=== PATIENT | female | born 1955 | race Caucasian/White ===

== ENCOUNTER 2017-12-01 11:42 | Inpatient (IN) | payer OTHER ==
[~2017-12-01] VITALS: Ht 162.6 cm; Wt 174.6 kg
[2017-12-01 11:42] VITALS: BP 147/54
[2017-12-01 12:46] LABS: BASO % 0.3 % (0.0-1.0); HEMATOCRIT 35.4 % (37.0-47.0); HEMOGLOBIN 11.4 g/dl (12.0-16.0); LYMPH # 0.8 10*3/uL (1.3-4.4); LYMPH % 5.1 % (27.0-41.0); MEAN CELL VOLUME 78.7 fl (81.0-99.0); MEAN CORPUSCULAR HGB 25.3 pg (27.0-31.0); MEAN CORPUSCULAR HGB CONC 32.2 g/dl (33.0-37.0); MEAN PLATELET VOLUME 11.5 fl (9.6-12.3); MONO # 1.2 10*3/uL (0.1-1.0); MONO % 7.8 % (3.0-9.0); NEUT # 12.9 10*3/uL (2.3-7.9); NEUT % 84.8 % (47.0-73.0); PLATELET COUNT AUTOMATED 267 10*3/uL (130-400); RED CELL DISTRI WIDTH 16.8 % (0-14.5); WHITE BLOOD COUNT 15.2 10*3/uL (4.8-10.8)
[2017-12-01 13:03] LABS: ALBUMIN 1.9 gm/dl (3.1-4.5); CREATININE 1.96 mg/dL (0.55-1.02); POTASSIUM 3.2 mmol/L (3.5-5.1); TOTAL PROTEIN 7.6 gm/dL (6.4-8.2); TROPONIN I 0.035 ng/ml (<0.045)
[2017-12-01 14:00] VITALS: BP 136/57
[2017-12-01 14:30] VITALS: BP 120/63
[2017-12-01] MEDS ORDERED: HUMULIN R500 UNIT/1 SQ (15:38)
[2017-12-01] MEDS ORDERED: VICTOZA 3-PAK6 MG/ML SC (15:39)
[2017-12-01] MEDS ORDERED: TOPROL XL25 MG PO (15:41)
[2017-12-01 16:00] VITALS: BP 135/76
[2017-12-01] MEDS ORDERED: NORVASC5 MG PO (16:00)
[2017-12-01] MEDS ORDERED: HYDROCHLOROTHIA25 M1 PO (16:00)
[2017-12-01] MEDS ORDERED: MEGESTROL ACETA40 MG PO (16:00)
[2017-12-01] MEDS ORDERED: Rocaltrol0.25 MCG PO (16:01)
[2017-12-01] MEDS ORDERED: VESICARE10 MG PO (16:01)
[2017-12-01 17:54] LABS: ACT PARTIAL THROMBO TIME 25.5 SECONDS (20.8-31.5); INTERNATIONAL NORM RATIO 1.2 (2.0-3.5)
[2017-12-01 20:00] VITALS: BP 120/50
[2017-12-02] VITALS: BP 150/51
== END 2017-12-02 00:15 | disposition short-term general hospital (02) | DRG 871 ==
LOC: ED 11:42 → EDHOLD 14:33 → 5E 14:39
PROVIDERS: Family Medicine; Student in an Organized Health Care Education/Training Program
DX: A41.9 Sepsis, unspecified organism (principal); N17.0 Acute kidney failure with tubular necrosis; E43 Unspecified severe protein-calorie malnutrition; E87.2 Acidosis; L89.150 Pressure ulcer of sacral region, unstageable; L89.893 Pressure ulcer of other site, stage 3; E87.1 Hypo-osmolality and hyponatremia; F33.9 Major depressive disorder, recurrent, unspecified; Z68.44 Body mass index [BMI] 60.0-69.9, adult; R07.9 Chest pain, unspecified; E87.6 Hypokalemia; D50.9 Iron deficiency anemia, unspecified; E66.01 Morbid (severe) obesity due to excess calories; E11.65 Type 2 diabetes mellitus with hyperglycemia; I10 Essential (primary) hypertension; Z79.4 Long term (current) use of insulin; Z88.1 Allergy status to other antibiotic agents; Z90.49 Acquired absence of other specified parts of digestive tract; Z82.49 Family history of ischemic heart disease and other diseases of the circulatory system; Z80.6 Family history of leukemia; Z79.899 Other long term (current) drug therapy

== ENCOUNTER 2018-07-28 16:34 | Inpatient (IN) | payer MEDICAID ==
--- NOTE | 2018-07-27 19:40 | NUR ---
Time: 1938 A 63 year old FEMALE admitted to 4E under services of BEATRIS HARDING DO. Pt. arrived via stretcher from ER. Chief complaint: WEAKNESS. SITA CROFT
[~2018-07-28] VITALS: Ht 162.6 cm; Wt 145.9 kg
--- NOTE | ~2018-07-28 | CON ---
[place], [place] REPORT OF CONSULTATION NAME: GERMAN MAKI UNIT #: [id number] ROOM: 403 DOCTOR: BRANDIE CABALLERO MD BIRTHDATE: [birth year] DOS: 07/30/2018 REASON FOR CONSULTATION: UTI/osteomyelitis of spine. CHIEF COMPLAINT: Leakage from urinary catheter. HISTORY OF PRESENT ILLNESS: This is a 63-year-old female who is known to me from her last admission at [facility] when she was seen in 11/2017. She had a CSF leakage from her coccygeal area along with erosion of her coccygeal area concerning for osteomyelitis. At that time, she also had clostridium ramosum bloodstream infection, which was positive in 2/4 bottles anaerobic cultures, and after being at [facility] and consultation with Neurosurgery, it was recommended by Neurosurgery to transfer her to [facility] where her CSF leak can be corrected. However, after the transfer to [facility], it was deemed that because of her comorbidities and morbid obesity, she is not a candidate for any corrective surgery of the spine, and she was treated empirically with IV antibiotics for 6 weeks and then she followed up with me in the clinic. At that time, she was off antibiotics and was supposed to follow up regularly with ESR, CRP, but she did not, and she kept on requesting to be sent back home. She was at [facility] for a long time, but she was not happy with the care, and signed herself AMA and has been at home for the last few days where her urinary catheter was leaking, and she denied having abdominal pain. No fever or chills. On presentation to the hospital, her vitals are stable. Her labs do not reveal any leukocytosis. Her urine shows 16-20 wbc's. Urine culture is growing Citrobacter as well as E. faecalis. Urinary catheter has been removed. There was a lower extremity ultrasound done because of her weakness, which was showing a possible DVT of the posterior tibial vein, which was a suboptimal imaging, and a lumbar spine CT that was done yesterday 07/29/2018 with contrast shows chronic coccyx osteomyelitis and mild L3-L4 and moderate L4-L5 spinal stenosis, severe L5-S1 degenerative disk disease. The patient has been started on vancomycin and Zosyn. ID has been consulted for further management. PAST MEDICAL HISTORY: Significant for spinal stenosis, osteomyelitis as mentioned above. Hypertension, morbid obesity, type 2 diabetes, history of uterine cancer that has been resolved. PAST SURGICAL HISTORY: Cholecystectomy, skin graft, and tonsillectomy. SOCIAL HISTORY: Nonalcoholic, nonsmoker, no illicit drug use. FAMILY HISTORY: Noncontributory at this time. ALLERGIES: TO LEVOFLOXACIN, NOT MENTIONED WHAT IT IS. HOME MEDICATIONS: Reviewed. REVIEW OF SYSTEMS: A 12-point review of systems has been done. Pertinent negatives and positives included in HPI. Rest are noncontributory. [place], [place] REPORT OF CONSULTATION NAME: GERMAN MAKI UNIT #: [id number] ROOM: 403 [facility] BIR[facility] [birth year] PHYSICAL EXAMINATION: VITAL SIGNS: Noted stable, mentioned in HPI. GENERAL: The patient is alert, oriented x 3, not in acute distress. HEENT: Atraumatic, normocephalic. PERRLA. EOMI. RESPIRATORY: Air entry bilaterally equal. No wheeze or crackles. CARDIOVASCULAR: S1, S2 normal. No murmur, rubs or gallops. ABDOMEN: Soft, morbidly obese pannus, nontender. EXTREMITIES: Bilateral lower extremity chronic swelling and chronic skin changes from her diabetes. SPINE: Lower lumbar coccygeal area has spinal tenderness, no redness or leakage found at this time and the defect has closed from what has seen in 11/2017. LABORATORY DATA AND IMAGING: Reviewed, mentioned in HPI. ASSESSMENT AND PLAN: 1. Urinary tract infection/suspected neurogenic bladder/chronic indwelling Connors catheter, which has been removed. 2. Chronic osteomyelitis of lumbar spine treated recently; currently the CSF leakage defect has been closed. PLAN: At this time, from her prior presentation she has shown remarkable improvement in her CSF defect as well as spinal defect over the coccygeal area, and she has been treated appropriately with 6 weeks of antibiotics in the past, I would treat her UTI at this time with 7 days of amoxicillin 500 mg t.i.d. plus Bactrim 1 tablet double strength twice a day for 7 days. Monitor CBC, BMP while on antibiotics. At this time, I would just check her ESR, CRP, and monitor it every month as a follow up. I have seen her at my [place] clinic and would just request her to keep on following. Would do a bladder scan to make sure she is not retaining any more urine. She has fecal incontinence, it would be okay to check C. diff for now. If it is negative, then monitor her closely and would refer her outpatient for neurosurgical evaluation. Overall stable from ID standpoint. Thank you for your consult. Please call for any questions. Brandie Caballero MD CM:CONSTR:REPORT OF CONSULTATION 1716 09/01/18 1641 interface
--- NOTE | ~2018-07-28 | EKG ---
[place], [place] ELECTROCARDIOGRAM REPORT NAME: GERMAN MAKI UNIT #: [id number] ROOM: 403 DOCTOR: MARCIAL DRAFT REPORT BIRTHDATE: [birth year] [facility] Test Date: 2018-07-28 Test Time: 18:21:17 Pat Name: GERMAN MAKI Department: Room: 403 Gender: F Curtain Cleaner: Ilda Antony : 1955 Requested By: FRENCH FAJARDO PA-C Order Number: [id number] Reading MD: Sai Parham MD Measurements Intervals Valentine Rate: 55 P: 4 VT: 170 QRS: -50 QRSD: 139 T: 45 QT: 506 QTc: 484 Interpretive Statements Sinus rhythm Left bundle branch block Baseline wander in lead(s) V6 Electronically Signed On 07-29-2018 18:18:31 PST by Sai Parham MD CM:EKGRPT:ELECTROCARDIOGRAM REPORT 20 1818 FRENCH FAJARDO PA-C EPIPHANY DRAFT REPORT FRENCH FAJARDO PA-C
[2018-07-28 16:34] VITALS: BP 144/57
[~2018-07-28 16:34] MED LIST: HUMULIN R500 UNIT/1 SQ; HYDROCHLOROTHIA25 M1 PO; MEGESTROL ACETA40 MG PO; NORVASC10 MG PO; Rocaltrol0.25 MCG PO; TOPROL XL25 MG PO; VESICARE10 MG PO; VICTOZA 3-PAK6 MG/ML SC
[2018-07-28 17:30] LABS: BASO # 0.1 10*3/uL (0.0-0.1); BASO % 0.6 % (0.0-1.0); EOS # 0.2 10*3/uL (0.0-0.4); EOS % 1.9 % (1.0-4.0); HEMATOCRIT 40.4 % (37.0-47.0); HEMOGLOBIN 12.5 g/dl (12.0-16.0); LYMPH # 1.4 10*3/uL (1.3-4.4); LYMPH % 16.9 % (27.0-41.0); MEAN CELL VOLUME 83.1 fl (81.0-99.0); MEAN CORPUSCULAR HGB 25.7 pg (27.0-31.0); MEAN CORPUSCULAR HGB CONC 30.9 g/dl (33.0-37.0); MEAN PLATELET VOLUME 10.2 fl (9.6-12.3); MONO # 0.5 10*3/uL (0.1-1.0); MONO % 6.2 % (3.0-9.0); NEUT # 6.3 10*3/uL (2.3-7.9); NEUT % 73.9 % (47.0-73.0); PLATELET COUNT AUTOMATED 313 10*3/uL (130-400); RED BLOOD COUNT 4.86 10*6/uL (4.10-5.10); RED CELL DISTRI WIDTH 17.2 % (0-14.5); WHITE BLOOD COUNT 8.5 10*3/uL (4.8-10.8)
[2018-07-28 17:44] LABS: ACT PARTIAL THROMBO TIME 25.5 SECONDS (20.8-31.5)
[2018-07-28 18:00] LABS: BILIRUBIN NEGATIVE (NEGATIVE); BLOOD 1+ (NEGATIVE); CLARITY CLOUDY (CLEAR); COLOR YELLOW (YELLOW); GLUCOSE NEGATIVE (NEGATIVE); KETONE TRACE (NEGATIVE); LEUKO ESTERASE 3+ (NEGATIVE); NITRITE POSITIVE (NEGATIVE); PH 7.5 (5.0-9.0); SPECIFIC GRAVITY 1.015 (1.005-1.030); UROBILINOGEN 0.2 E.U./dl (0.2-1.0)
[2018-07-28 18:02] LABS: ALBUMIN 2.5 gm/dl (3.1-4.5); ALKALINE PHOSPHATASE 113 U/L (45-117); BUN 10 mg/dl (7-24); CHLORIDE 101 mmol/L (98-107); CREATININE 1.01 mg/dL (0.55-1.02); LIPASE 38 U/L (73-393); POTASSIUM 3.9 mmol/L (3.5-5.1); SGOT/AST 19 IU/L (3-35); SGPT/ALT 17 U/L (12-78); SODIUM 135 mmol/L (136-145); TOTAL PROTEIN 9.1 gm/dL (6.4-8.2)
[2018-07-28 18:08] LABS: TROPONIN I < 0.015 ng/ml (<0.045)
[2018-07-28 18:08] LABS: BACTERIA 3+; WBC 16-20 wbc/hpf (0-5)
[2018-07-28 19:26] VITALS: BP 152/78
[2018-07-28 19:40] VITALS: BP 152/48
--- NOTE | 2018-07-28 19:58 | NUR ---
DR. ROBB IN TO SEE PATIENT.
--- NOTE | 2018-07-28 20:26 | NUR ---
CALLED [facility] IN [place] TO VERIFY HOME MEDICATIONS. [facility] PATIENT HAS NOT FILLED ANY SCRIPTS SINCE 2017 DUE TO BEING IN THE CUSTODIAL. [facility] HE WILL FAX MEDICATION LIST FROM JANUARY 2018-PRESENT.
--- NOTE | 2018-07-28 20:31 | NUR ---
SPOKE TO HOISTMAN AT [facility]. STATES THIS PATIENT WAS A PATIENT THERE, BUT SHE LEFT AMA. STATES SHE HAS NO ACCESS TO PAST RECORDS AND THAT THESE CAN ONLY BE OBTAINED FROM THE OFFICE. OFFICE HOURS 9AM-5PM M-F. PHONE NUMBER [phone]. UNABLE TO VERIFY HOME MEDICATIONS FOR THIS REASON.
[2018-07-29] VITALS: BP 136/78
--- NOTE | 2018-07-29 02:18 | NUR ---
MULTIPLE ATTEMPTS WERE MADE TO PLACE RIVAS CATHETER BY MULTIPLE RNs PER 'S VERBAL ORDER. UNABLE TO DUE SO. PATIENT HAS HX OF UTERINE CANCER W/ RADIATION THERAPY. UNABLE TO VISUALIZE URETHRAL OPENING BECAUSE OF THIS.
[2018-07-29 06:56] LABS: BASO # 0.1 10*3/uL (0.0-0.1); BASO % 0.7 % (0.0-1.0); EOS # 0.2 10*3/uL (0.0-0.4); EOS % 2.6 % (1.0-4.0); HEMOGLOBIN 11.6 g/dl (12.0-16.0); LYMPH # 1.2 10*3/uL (1.3-4.4); MEAN CELL VOLUME 84.1 fl (81.0-99.0); MEAN CORPUSCULAR HGB CONC 29.7 g/dl (33.0-37.0); MEAN PLATELET VOLUME 10.3 fl (9.6-12.3); MONO # 0.7 10*3/uL (0.1-1.0); MONO % 8.4 % (3.0-9.0); NEUT # 6.6 10*3/uL (2.3-7.9); NEUT % 74.7 % (47.0-73.0); PLATELET COUNT AUTOMATED 284 10*3/uL (130-400); RED BLOOD COUNT 4.64 10*6/uL (4.10-5.10); RED CELL DISTRI WIDTH 17.2 % (0-14.5); WHITE BLOOD COUNT 8.9 10*3/uL (4.8-10.8)
[2018-07-29 07:22] LABS: ALBUMIN 2.4 gm/dl (3.1-4.5); CHLORIDE 104 mmol/L (98-107); POTASSIUM 3.8 mmol/L (3.5-5.1); SGOT/AST 15 IU/L (3-35); SGPT/ALT 15 U/L (12-78); SODIUM 137 mmol/L (136-145)
[2018-07-29 07:34] LABS: ALKALINE PHOSPHATASE 104 U/L (45-117); BUN 12 mg/dl (7-24); TOTAL PROTEIN 8.3 gm/dL (6.4-8.2)
--- NOTE | 2018-07-29 07:40 | NUR ---
PT RESTING IN BED. HELPED POSITION SELF IN BED. RESP-EASY AND REGULAR. IVF INFUSING WITH NO PROBLEM. NO C/O AT THIS TIME. CALL LIGHT IN REACH. SEE SHIFT ASSESSMENT.
[2018-07-29 08:00] VITALS: BP 122/54
--- NOTE | 2018-07-29 08:54 | NUR ---
FRENCH AWARE OF WOUND CARE CONSULT.
--- NOTE | 2018-07-29 09:00 | NUR ---
Customer Sales Representative in to talk to patient. Patient states lives at home with . There are no steps in the home. Physician: dev desir [facility]acy[facility] Home health services: none Patient's level of ADLs: MAX ASSIST Patient has working utilities: all working DME: walker Follow-up physician's appointment after d/c: will be made by hospitalist nurse director upon discharge Does patient want to access PORTAL?: no Discharge plan discussed with patient, patient lives at home with , patient states she was just discharged from a nursing facility in [place], where she had been since November of last year. patient states she was discharged last to home, no home services were set up. patient's also present. discussed with them a discharge plan and patient felt she needed to return to a short term nursing home was inagreement with this. patient stated she would like to go to a facility either in [place] or [place]. associate media planner will send referrals to facilities in these areas, case management will follow. SAMY JOSÉ
--- NOTE | 2018-07-29 09:10 | NUR ---
Occupational Therapy evaluation completed on 4 with full eval completed. Precautions include fall risk, obesity,collazo removal and unable to be re-inserted, IV UE,impaired mobility. Patient is moderate complexity level 47207 via chart review testing and evaluation. Recommend OT per POC and SNF to enable safe return home with . Thank you for this referral Bonita Lee OTR/L
--- NOTE | 2018-07-29 09:12 | NUR ---
PHYSICAL THERAPY PAtient evaluated on 4, full evaluation to follow. Continue with PT as per plan of care with fall, morbidly obese and mod (A) precautions. Will require return to SNF. Patient is moderate complexity via chart review, tests and evaluation: [id number]. Thank you for this referral. Chela Jang,PT
--- NOTE | 2018-07-29 09:30 | NUR ---
SPOKE WITH [facility] THEY WILL FAX MEDICATION LIST.
--- NOTE | 2018-07-29 10:30 | NUR ---
SPOKE WITH NEFTALI AT [facility] SHE WILL FAX SHE GOT BUSY
--- NOTE | 2018-07-29 10:34 | NUR ---
Spoke with Patient and at Bedside. Pt. would like facility closer to where they live for SNF placement. Will follow.
[2018-07-29] MEDS ORDERED: COLACE100 MG PO (10:35)
[2018-07-29] MEDS ORDERED: HUMALOG100 UNIT/2 SQ (10:38)
[2018-07-29] MEDS ORDERED: LANTUS SOL100 UNIT/1 SQ (10:40)
[2018-07-29] MEDS ORDERED: LASIX20 MG PO (10:40)
[2018-07-29] MEDS ORDERED: ANTI-DIARRHEAL2 MG PO (10:41)
[2018-07-29] MEDS ORDERED: MULTIVITAMINS1 EAC5 PO (10:42)
[2018-07-29] MEDS ORDERED: NEURONTIN300 MG PO (10:42)
[2018-07-29] MEDS ORDERED: ZYPREXA5 M1 PO (10:43)
[2018-07-29] MEDS ORDERED: PROSIGHT TABLE1 EACH PO (10:44)
[2018-07-29] MEDS ORDERED: TYLENOL325 M1 PO (10:45)
[2018-07-29] MEDS ORDERED: VESICARE10 MG PO (10:45)
--- NOTE | 2018-07-29 10:50 | NUR ---
SPOKE WITH NEFTALI AGAIN AT [facility] MADE AWARE ONLY GOT 2 PAGES AND PAPER STATES THERE WAS 4. SHE WILL REFAX.
--- NOTE | 2018-07-29 10:51 | NUR ---
PT ASSISTED ON TO BED TO BE TRANSPORTED TO RADIOLOGY.
[2018-07-29] MEDS ORDERED: ZOLOFT50 MG PO (10:55)
--- NOTE | 2018-07-29 11:15 | NUR ---
Spoke with Stephany at [facility]. SNF bed Available. Faxed referral.
[2018-07-29] MEDS ORDERED: AQUAPHOR396 GM T (11:18)
[2018-07-29] MEDS ORDERED: CARVEDILOL25 MG PO (11:31)
[2018-07-29] MEDS ORDERED: Rocaltrol0.25 MCG PO (11:31)
[2018-07-29] MEDS ORDERED: VITAMIN D31000 UNI1 PO (11:32)
--- NOTE | 2018-07-29 11:32 | NUR ---
DR. COLE MADE AWARE MEDS ARE UPDATED.
--- NOTE | 2018-07-29 11:35 | NUR ---
DR. COLE CALLED REGARDING ULTRASOUND
--- NOTE | 2018-07-29 11:45 | NUR ---
RESTING IN BED. BSG-211, SEE EMAR. NO C/O AT THIS TIME. CALL LIGHT IN REACH.
--- NOTE | 2018-07-29 11:55 | NUR ---
HENS completed online. Does not require further review. Validation Complete. Printed and Copy placed on patient chart.
[2018-07-29 12:00] VITALS: BP 147/52
--- NOTE | 2018-07-29 12:20 | NUR ---
[facility] called to request facesheet and H&P. Faxed facesheet and ED report as no H&P is available to [phone].
--- NOTE | 2018-07-29 12:37 | NUR ---
Level of Care Signed by Dr. Reagan Faxed to [facility] for review Attn: Jennifer.
--- NOTE | 2018-07-29 12:51 | NUR ---
GLYNN [id number] Please refer to the physician's history and physical for past medical history, comorbid conditions, and allergies. Diagnosis: UTI GENERAL WEAKNESS Jairon Score: 11,HIGH RISK WOUND DESCRIPTIONS: Location of the wound: left inner aspect of thigh Type of wound: stage 2 Thickness: Partial Size: 0.4cm x 0.3cm x 0.1cm Tunneling: none Undermining: none Sinus Tract: none Presence of Exudate: Amount: None Color: Red Odor: None Periwound Skin Appearance: Erythema Wound edges: approximated Pain (associated with wound): none at time of assessment How does patient state this happened? pt stated she has had these areas for quite sometime Abodminal folds are patchy red in color with mild odor noted. Surface the patient is resting on: Isoflex SKIN PREVENTION RECOMMENDATION: 1. Pressure redistribution support surface as appropriate 2. Elevate heels 3. Remove boots/TEDS every shift and reapply 4. Head of bed 30 degrees as tolerated 5. Assess nutrition and hydration 6. Manage moisture 7. Avoid the use of containment devices while in bed 8. Use absorptive products on surfaces limit layers of linens on bed 9. Turn and reposition every 1-2 hours in bed and every 1 hour in chair as tolerated 10. Weight shifts every 15 minutes while up in chair 11. Offloading with pillows or device to keep heels elevated off bed 12. Monitor skin at least every shift 13. Inspect under medical devices twice a day WOUND TREATMENT RECOMMENDATIONS: Cleanse abdominal folds with soap and water pat area dry then apply nystatin powder every 8 hours. wheelchair cushion when oob. heel raiser pro boots while in bed. stage 2 guidelines: Cleanse left inner aspect of thigh with nss and apply sureprep around the wound hydrogel to wound bed and cover with optifoam gentle. Recommend follow up for wound care in outpatient setting patient being discharge to another facility at this time.
--- NOTE | 2018-07-29 13:57 | NUR ---
CALLED DR. CABALLERO OFFICE MADE AWARE OF CONSULT. THEY WILL NOTIFY HER.
--- NOTE | 2018-07-29 14:28 | NUR ---
Spoke to Stephany at [facility]. She stated they are able to take the patient. They will need a LOC and PASSR. Notified habitat conservation planner.
--- NOTE | 2018-07-29 14:53 | NUR ---
Patient completed PASS/RR and LOC all faxed to [facility].
[2018-07-29 16:00] VITALS: BP 150/53
--- NOTE | 2018-07-29 17:00 | NUR ---
PT RESTING IN BED, REPOSITIONED IN BED. OPTIFOAM PLACED ON LEFT THIGH. BSG-254, SEE EMAR. CALL LIGHT IN REACH. SEE SHIFT ASSESSMENT.
--- NOTE | 2018-07-29 18:00 | NUR ---
TOLERATING IV ANTIBIOTICS WITH NO PROBLEM. NO C/O AT THIS TIME. CALL LIGHT IN REACH.
[2018-07-29 20:00] VITALS: BP 137/77
[2018-07-30] VITALS: BP 105/42
[2018-07-30 06:30] LABS: BASO # 0.1 10*3/uL (0.0-0.1); BASO % 0.7 % (0.0-1.0); EOS # 0.3 10*3/uL (0.0-0.4); EOS % 3.5 % (1.0-4.0); HEMATOCRIT 37.9 % (37.0-47.0); LYMPH # 1.6 10*3/uL (1.3-4.4); LYMPH % 17.3 % (27.0-41.0); MEAN CELL VOLUME 85.4 fl (81.0-99.0); MEAN CORPUSCULAR HGB 24.8 pg (27.0-31.0); MEAN PLATELET VOLUME 10.6 fl (9.6-12.3); MONO # 1.1 10*3/uL (0.1-1.0); MONO % 12.4 % (3.0-9.0); NEUT # 5.9 10*3/uL (2.3-7.9); NEUT % 65.4 % (47.0-73.0); PLATELET COUNT AUTOMATED 232 10*3/uL (130-400); RED BLOOD COUNT 4.44 10*6/uL (4.10-5.10); RED CELL DISTRI WIDTH 17.2 % (0-14.5); WHITE BLOOD COUNT 8.9 10*3/uL (4.8-10.8)
[2018-07-30 06:55] LABS: CREATININE 1.18 mg/dL (0.55-1.02); PHOSPHOROUS 3.7 mg/dL (2.5-4.9); POTASSIUM 3.5 mmol/L (3.5-5.1)
--- NOTE | 2018-07-30 07:00 | NUR ---
BEDSIDE REPORT OBTAINED FROM [facility]. PATIENT APPEARS TO BE ASLEEP, EYES CLOSED. NO S&S OF DISTRESS NOTED, RESP ARE ERND ON ROOM AIR. BED IS LOCKED IN LOWEST POSITION, CALL LIGHT LEFT WITHIN REACH.
[2018-07-30 08:00] VITALS: BP 120/51
--- NOTE | 2018-07-30 09:00 | NUR ---
case management visits with patient, planner chief is working on getting patient to a short term usp, case management will follow
--- NOTE | 2018-07-30 09:11 | NUR ---
I would recommend if standardize treatment is infective after September 09, 2018 to follow up with the wound care center for possible HBO treatments if patient meet requirements.
--- NOTE | 2018-07-30 10:32 | NUR ---
PHYSICAL THERAPY Patient presented to therapy in supine with head of bed elevated and visitor in room with patient. Patient has report of moderate pain in low back. Patient agrees to therapy session. Patient was identified by name and . Patient performed rolling to side with MIN A X 1. Patient side-lying to sitting at EOB with MIN A X 1. Patient transferred STS with MIN A X 1 with V/Cs for pushing off armrests with hands. Patient stood at W/W for 1 minute x 2 with CGA X 1. Patient sat at EOB and performed bilateral LE ther ex 2 x 10 reps each in all planes of movement. Patient transferred back to supine in bed with MIN A X 1. Patient was left in supine position with with head of bed elevated, call light within reach, bed alarm activated, and tray table beside patient. Patient was 1:1 with this AGRICULTURAL EQUIPMENT SALESPERSON FOR 20 MINUTES TOTAL. bobby melendez ferry captain
--- NOTE | 2018-07-30 11:44 | NUR ---
PER WOUND CARE. DRESSING CHANGE COMPLETED YESTERDAY. DRESSING D/C/I, TO BE CHANGED YESTERDAY.
[2018-07-30 12:00] VITALS: BP 116/59
--- NOTE | 2018-07-30 13:30 | NUR ---
IV started left forearm with #22 angiocath after 0 attempts. The IV site was prepped with Chloraprep. Heparin lock attached. Sterile dressing applied. Patient tolerated precedure well. Procedure performed according to [facility] policy & procedure. JAX ERAZO
--- NOTE | 2018-07-30 13:30 | NUR ---
Hep Lock discontinued TO RAN. Site symptomatic, OLI AND LEAKING AT SITE. Pressure applied. Sterile dressing applied. JAX ERAZO
--- NOTE | 2018-07-30 13:49 | NUR ---
PHYSICAL THERAPY Patient presented to therapy in supine with head of bed elevated and report of no LBP. Patient agrees to therapy session. Patient was identified by name and . Patient performed supine to sitting at EOB transfer with with MIN A X 2. Patient transferred STS with MIN A X 2. Patient ambulated with W/W and CGA X 2 with Bariatric W/C follow and verbal cues for upright posture, pushing down on handles with UEs, and locking knees when weight-bearing. Patient ambulated 30' x 2. Patient transferred out of low bariatric W/C with MIN A X 2 with verbal cues for pushing off armrests with hands. Patient transferred back to supine in bed with MIN A X 2. Patient was left in supine with head of bed elevated, call light within reach, and bed alarm activated. Patient was 1:1 with this MOLD BUILDER for 20 minutes total. SHARON MOSLEY MOLD BUILDER
--- NOTE | 2018-07-30 13:50 | NUR ---
OT NOTE Pt was seen this P.M. 1:1 for 20 minute OT session. Upon arrival pt was supine in bed, pt identified by name and . Pt had no complaints at this time. Pt transferred supine to sit EOB with SBA with use of bed rails. While sitting EOB challenged pt's sitting balance while weight shifting, crossing midline, and bilateral integration. Pt was able to maintain F+ sitting balance throughout. Sit to stand completed from bed level with Ana and education for proper hand placement. Functional mobility then completed to bathroom with CGA and use of w/w for UE support. Pt required one standing rest break and then a seated rest break before going back to bed. Functional mobility then completed back to bed where she transferred sit to supine with SBA. Pt was left supine in bed with call light in hand, tray table in place, and bed alarm activated for safety. Continue with POC as able. VELMA Flynn/Charis
--- NOTE | 2018-07-30 14:42 | NUR ---
Patient accepted to [facility], can go when medically stable for discharge.
--- NOTE | 2018-07-30 15:00 | NUR ---
OCCUPATIONAL THERAPY CO-SIGN I approve of the Occupational Therapy notes written above. BRIGHT WU OTR/Charis
[2018-07-30 16:00] VITALS: BP 125/60
--- NOTE | 2018-07-30 16:39 | NUR ---
PHARMACIST FAITH IMNFORMED OF VANC TROUGH OF 20.9. STATED OK.
[2018-07-30 20:00] VITALS: BP 117/43
[2018-07-31] VITALS: BP 98/77
[2018-07-31 06:27] LABS: BASO # 0.1 10*3/uL (0.0-0.1); BASO % 0.8 % (0.0-1.0); EOS # 0.4 10*3/uL (0.0-0.4); HEMATOCRIT 36.4 % (37.0-47.0); HEMOGLOBIN 10.8 g/dl (12.0-16.0); LYMPH # 1.6 10*3/uL (1.3-4.4); LYMPH % 18.7 % (27.0-41.0); MEAN CELL VOLUME 84.7 fl (81.0-99.0); MEAN CORPUSCULAR HGB 25.1 pg (27.0-31.0); MEAN CORPUSCULAR HGB CONC 29.7 g/dl (33.0-37.0); MEAN PLATELET VOLUME 10.6 fl (9.6-12.3); MONO # 0.8 10*3/uL (0.1-1.0); MONO % 8.8 % (3.0-9.0); NEUT # 5.9 10*3/uL (2.3-7.9); PLATELET COUNT AUTOMATED 240 10*3/uL (130-400); RED CELL DISTRI WIDTH 17.3 % (0-14.5); WHITE BLOOD COUNT 8.8 10*3/uL (4.8-10.8)
[2018-07-31 06:39] LABS: CREATININE 1.44 mg/dL (0.55-1.02); POTASSIUM 3.4 mmol/L (3.5-5.1)
[2018-07-31 08:00] VITALS: BP 130/82
--- NOTE | 2018-07-31 10:56 | NUR ---
PHYSICAL THERAPY Pt seen this AM for her therapy session, supine in bed at time of arrival with nursing staff present in room. Pt transferred supine->sit, CGA-Ana. Sitting balance at EOB with 1xUE support with completion of B LE ther-ex. Pt completed B LE ther ex x15 reps of the following for LE strength, endurance and function for performance of gait, transfers and bed mobility: marches, LAQs, hip ABD with min manual resistance, hip ADD with isometric squeeze and ankle pumps; cues and supervision for technique, pacing and progression of exercise. Pt completed STS transfer from EOB to FWW x 3 reps with emphasis on technique and hand placement; CGA occasional Ana provided. Gait training with use of FWW and CGA for ~16'x2 with emphasis directional changes, safety and sequence- pt demo increased fatigue with small distances and required seated rest breaks between walks; min cues for postural correction and keeping SOLANGE within walker with directional changes. Pt performed sit->supine with Ana and was educated on bridging technique to initiate bed mobility and scooting to HOB. Pt re-positioned in supine with call light and tray table within reach at session end. Julisa Pinto, R D INTERNSHIP
[2018-07-31 12:00] VITALS: BP 131/56
[2018-07-31] MEDS ORDERED: XARELTO1 EACH PO (12:07)
[2018-07-31] MEDS ORDERED: AMOXICILLIN500 M2 PO (14:36)
[2018-07-31] MEDS ORDERED: SEPTDS PO (14:36)
--- NOTE | 2018-07-31 15:00 | NUR ---
Discharge instructions reviewed with patient. Patient receptive and verbalizes understanding. Follow-up care understood. Written instructions given to patient/sent with patient to care facility. iv removed. ANGELICA DE LA CRUZ
--- NOTE | 2018-07-31 15:04 | NUR ---
PT HAS A SMALL WOUND LEFT POSTERIOR THIGH, PT DOES NOT WANT PICTURE TAKEN PRIOR TO DISCHARGE, THERE IS NO DRESSING ON WOUND AT THIS TIME.
--- NOTE | 2018-07-31 15:05 | NUR ---
PT AWARE D/C TO SNF TODAY
--- NOTE | 2018-07-31 15:09 | NUR ---
AWARE OF PATIENT D/C TO [facility]
--- NOTE | 2018-07-31 15:27 | NUR ---
REPORT CALLED TO RN AT [facility]
--- NOTE | 2018-07-31 17:01 | NUR ---
asi here to transport patient for discharge to snf
--- NOTE | 2018-08-02 07:45 | NUR ---
PHYSICAL THERAPY CO-SIGN I approve of the Phyical Therapy notes written above. SUZANNE ENAMORADO PT
--- NOTE | 2018-08-02 09:34 | NUR ---
OCCUPATIONAL THERAPY CO-SIGN I approve of the Occupational Therapy notes written above. BRIGHT WU OTR/Charis
== END 2018-07-31 17:01 | DRG 698 ==
LOC: ED 16:34 → 4E 18:46 → EDHOLD 18:46 → 4E 18:47
PROVIDERS: Family Medicine; Internal Medicine; Physician Assistant; ADMIT Emergency Medicine
DX: T83.511A Infection and inflammatory reaction due to indwelling urethral catheter, initial encounter (principal); E43 Unspecified severe protein-calorie malnutrition; N17.0 Acute kidney failure with tubular necrosis; E87.1 Hypo-osmolality and hyponatremia; M46.28 Osteomyelitis of vertebra, sacral and sacrococcygeal region; I82.441 Acute embolism and thrombosis of right tibial vein; Z68.43 Body mass index [BMI] 50.0-59.9, adult; R53.1 Weakness; E66.01 Morbid (severe) obesity due to excess calories; I10 Essential (primary) hypertension; M48.061 Spinal stenosis, lumbar region without neurogenic claudication; M51.37 Other intervertebral disc degeneration, lumbosacral region; E11.9 Type 2 diabetes mellitus without complications; B96.89 Other specified bacterial agents as the cause of diseases classified elsewhere; F32.9 Major depressive disorder, single episode, unspecified; Y84.6 Urinary catheterization as the cause of abnormal reaction of the patient, or of later complication, without mention of misadventure at the time of the procedure; D64.9 Anemia, unspecified; Z79.4 Long term (current) use of insulin; Z88.1 Allergy status to other antibiotic agents; Z90.49 Acquired absence of other specified parts of digestive tract; Z82.49 Family history of ischemic heart disease and other diseases of the circulatory system; Z80.7 Family history of other malignant neoplasms of lymphoid, hematopoietic and related tissues; Y92.89 Other specified places as the place of occurrence of the external cause; Z85.42 Personal history of malignant neoplasm of other parts of uterus; Z79.899 Other long term (current) drug therapy

== ENCOUNTER 2020-03-15 11:06 | Inpatient (IN) | payer MEDICAID ==
[~2020-03-15] VITALS: Ht 162.5 cm; Wt 142.9 kg
[~2020-03-15 11:06] MED LIST changes: +AMOXICILLIN500 M2 PO; +ANTI-DIARRHEAL2 MG PO; +AQUAPHOR396 GM T; +CARVEDILOL25 MG PO; +COLACE100 MG PO; +HUMALOG100 UNIT/2 SQ; +LANTUS SOL100 UNIT/1 SQ; +LASIX20 MG PO; +MULTIVITAMINS1 EAC5 PO; +NEURONTIN300 MG PO; +PROSIGHT TABLE1 EACH PO; +SEPTDS PO; +TYLENOL325 M1 PO; +VITAMIN D31000 UNI1 PO; +XARELTO1 EACH PO; +ZOLOFT50 MG PO; +ZYPREXA5 M1 PO
[2020-03-15 11:29] VITALS: BP 130/54
[2020-03-15 12:00] LABS: BASO % 0.3 % (0.0-1.0); EOS # 0.1 10*3/uL (0.0-0.4); EOS % 0.8 % (1.0-4.0); HEMATOCRIT 42.6 % (37.0-47.0); LYMPH # 1.1 10*3/uL (1.3-4.4); LYMPH % 11.4 % (27.0-41.0); MEAN CELL VOLUME 87.8 fl (81.0-99.0); MEAN CORPUSCULAR HGB 26.2 pg (27.0-31.0); MEAN CORPUSCULAR HGB CONC 29.8 g/dl (33.0-37.0); MEAN PLATELET VOLUME 11.4 fl (9.6-12.3); MONO # 0.6 10*3/uL (0.1-1.0); MONO % 6.5 % (3.0-9.0); NEUT # 7.4 10*3/uL (2.3-7.9); NEUT % 80.7 % (47.0-73.0); PLATELET COUNT AUTOMATED 220 10*3/uL (130-400); RED BLOOD COUNT 4.85 10*6/uL (4.10-5.10); RED CELL DISTRI WIDTH 16.8 % (0-14.5); WHITE BLOOD COUNT 9.2 10*3/uL (4.8-10.8)
[2020-03-15 12:10] LABS: ACT PARTIAL THROMBO TIME 26.2 SECONDS (20.0-32.1)
[2020-03-15 12:19] LABS: ALBUMIN 2.7 gm/dl (3.1-4.5); ALKALINE PHOSPHATASE 123 U/L (45-117); BUN 38 mg/dl (7-24); CHLORIDE 105 mmol/L (98-107); CREATININE 1.68 mg/dL (0.55-1.02); LIPASE 53 U/L (73-393); POTASSIUM 4.4 mmol/L (3.5-5.1); SGOT/AST 18 IU/L (3-35); SGPT/ALT 19 U/L (12-78); SODIUM 138 mmol/L (136-145); TOTAL PROTEIN 8.3 gm/dL (6.4-8.2)
[2020-03-15 12:26] LABS: TROPONIN I < 0.015 ng/ml (<0.045)
[2020-03-15 12:30] VITALS: BP 128/63
[2020-03-15 14:10] VITALS: BP 108/51
--- NOTE | 2020-03-15 14:15 | NUR ---
PATIENT STATED THAT SHE HAS A WOUND ON HER BUTTOCKS AREA. STATES THAT SHE DOES NOT WANT PICTURES TAKEN.
[2020-03-15 15:00] VITALS: BP 130/54
--- NOTE | 2020-03-15 15:00 | NUR ---
Time: 1500 A 65 year old female admitted to 4E under services of BYRON BSIHOP DO, Pt. arrived via bed from ER. Chief complaint: c/o diarrhea for two days.. JOHN REDDING
--- NOTE | 2020-03-15 15:27 | NUR ---
NOTIFIED DR ESCALANTE OF CONSULT. HE ADVISED THAT EITHER HE OR HIS HELPDESK MANAGER MAYTE WILL SEE THE PATIENT TOMORROW.
--- NOTE | 2020-03-15 15:50 | NUR ---
PT ARRIVED TO ROOM VIA BED COVERED IN LIQUID STOOL. PT FEET AND LEGS WERE COVERED WITH DRIED FECES. PT STILL REFUSING WOUNDCARE AT THIS TIME. REFUSING PHOTOS WELL MEASUREMENTS OF BUTTOCKS AND GROIN.PT WAS CRYING FROM PAIN AND WE HAD TO BATH HER ON ARTRIVAL WHEN I NOTICED THE WOUND TO BUTTOCKS WAS MUCH MORE THAN PT STATED. QUICKLY MEASURED THIS WOUND WHILE PT WAS ROLLED ON SIDE AND IRRIGATED WITH NORMAL SALINE PER DR ALEJANDRO.ENTIRE BUTTOCKS AND GROIN WELL VAGINA AND ANUS ECORIATED. NOTED A SEROUS, YELLOWISH DRAINAGE TOP ALL. MOST LIKELY LIQUID STOOL.WET TO DRY APPLIED TO COCCYX STAGE [address] ALEJANDRO'S ORDER UNTIL PT CALMS AND WOUNDCARE CAN SEE HER.
[2020-03-15 16:00] VITALS: BP 135/76
[2020-03-15 19:14] LABS: BILIRUBIN NEGATIVE (NEGATIVE); BLOOD 3+ (NEGATIVE); CLARITY SL CLOUDY (CLEAR); COLOR YELLOW (YELLOW); GLUCOSE NEGATIVE (NEGATIVE); KETONE NEGATIVE (NEGATIVE); LEUKO ESTERASE 1+ (NEGATIVE); NITRITE NEGATIVE (NEGATIVE); RBC TNTC rbc/hpf (0-2)
[2020-03-15 19:15] LABS: BACTERIA 2+; EPITHELIAL CELLS 0-2
[2020-03-15 20:00] VITALS: BP 134/82
--- NOTE | 2020-03-15 21:08 | NUR ---
DR KENDALL CALLED FOR ORDERS FOR CREAM PER PTS EXCORIATED ALEXIS AREA/BUTTOCKS. STATES HE WILL REVIEW PTS CHART.
--- NOTE | 2020-03-15 21:09 | NUR ---
TYLENOL GIVEN FOR COCCYX PAIN. WILL NAGA.
--- NOTE | 2020-03-15 22:00 | NUR ---
PT STATES NO PAIN
[2020-03-16] VITALS: BP 134/54
--- NOTE | 2020-03-16 04:31 | NUR ---
[facility] CONTACTED FOR MEDICATION LIST. [facility]
[2020-03-16] MEDS ORDERED: VENTOLIN 02.5 MG/3 M INH (05:37)
[2020-03-16] MEDS ORDERED: ATIVAN0.5 MG PO (05:38)
[2020-03-16] MEDS ORDERED: EFFEXOR XR75 M1 PO (05:39)
[2020-03-16] MEDS ORDERED: FEROSUL325 M1 PO (05:42)
[2020-03-16] MEDS ORDERED: GLIPIZIDE XL2.5 M1 PO (05:44)
[2020-03-16] MEDS ORDERED: TUSSIN100 MG/52 PO (05:46)
[2020-03-16] MEDS ORDERED: IBUPROFEN600 MG PO (05:47)
[2020-03-16] MEDS ORDERED: KLONOPIN0.5 MG PO (05:47)
[2020-03-16] MEDS ORDERED: ZESTRIL5 MG PO (05:49)
[2020-03-16] MEDS ORDERED: MECLIZINE HCL25 M2 PO (05:50)
[2020-03-16] MEDS ORDERED: METFORMIN HCL500 M3 PO (05:54)
[2020-03-16] MEDS ORDERED: OMEPRAZOLE40 MG PO (05:57)
[2020-03-16] MEDS ORDERED: ALDACTONE25 M1 PO (05:59)
[2020-03-16] MEDS ORDERED: REMERON30 M1 PO (05:59)
[2020-03-16] MEDS ORDERED: TRAZODONE50 MG PO (06:00)
[2020-03-16] MEDS ORDERED: XARE20MG PO (06:01)
[2020-03-16] MEDS ORDERED: ZOFRAN4 MG PO (06:02)
--- NOTE | 2020-03-16 06:23 | NUR ---
MED REC COMPLETE PER LONG-TERM PAPERS
[2020-03-16 06:43] LABS: BASO % 0.3 % (0.0-1.0); EOS # 0.2 10*3/uL (0.0-0.4); EOS % 2.6 % (1.0-4.0); HEMATOCRIT 39.7 % (37.0-47.0); LYMPH # 1.3 10*3/uL (1.3-4.4); LYMPH % 17.8 % (27.0-41.0); MEAN CELL VOLUME 88.4 fl (81.0-99.0); MEAN CORPUSCULAR HGB 25.8 pg (27.0-31.0); MEAN CORPUSCULAR HGB CONC 29.2 g/dl (33.0-37.0); MEAN PLATELET VOLUME 11.7 fl (9.6-12.3); MONO # 0.6 10*3/uL (0.1-1.0); NEUT # 4.9 10*3/uL (2.3-7.9); PLATELET COUNT AUTOMATED 200 10*3/uL (130-400); RED BLOOD COUNT 4.49 10*6/uL (4.10-5.10); RED CELL DISTRI WIDTH 17.1 % (0-14.5)
[2020-03-16 06:51] LABS: CREATININE 1.68 mg/dL (0.55-1.02); POTASSIUM 3.9 mmol/L (3.5-5.1)
--- NOTE | 2020-03-16 07:30 | NUR ---
PATIENT RESTING IN BED. PATIENT TEARFUL AND STATES HER HAS RECENTLY LEFT HER AFTER BEING FOR 28 YEARS. STATES SHE DOESN'T KNOW WHAT TO DO WHEN IT COMES TO GOING BACK TO THE [facility] OR NOT. ASSESSMENT COMPLETE. DENIES THE NEED FOR ANYTHING AT THIS TIME. RESPS EASY AND REGULAR. CALL LIGHT IN REACH.
--- NOTE | 2020-03-16 07:50 | NUR ---
ASSESSMENT COMPLETE AT THIS TIME WITH NO INCIDENCE. PT STATES SHE HAS NOT HAD ANY DIARRHEA SINCE LAST NIGHT. SHE STATES THAT UPON DISCHARGE SHE WANTS TO GO HOME VERSUS GOING TO A RETIREMENT. RESPIRATIONS ARE RELAXED AND REGULAR. CALL LIGHT IS WITHIN REACH
[2020-03-16 08:00] VITALS: BP 128/64
--- NOTE | 2020-03-16 08:45 | NUR ---
[facility] NOTIFIED OF UPDATED MED LIST
--- NOTE | 2020-03-16 09:51 | NUR ---
MAYTE REBOLLEDO IN TO SEE PATIENT
--- NOTE | 2020-03-16 10:30 | NUR ---
case management visits with patient, she states she was recently discharged home from [facility] in [place], she stated she was living with her who has now filed for divorce and stated he would no longer help her at home with her care. she became very tearful, reassurance given, she stated she was unable to live at home alone and would like to [facility] to [facility] and [facility]. educated her that social media editor will talk with her regarding this situation. case management will follow
--- NOTE | 2020-03-16 11:27 | NUR ---
MANAGEMENT ASSISTANT WENT TO SPEAK WITH THE PATIENT. PATIENT WAS BEING SEEN BY PT/OT. MANAGEMENT ASSISTANT WILL FOLLOW UP WITH THE PATIENT AT A LATER TIME. MANAGEMENT ASSISTANT CONTACTED [facility]. THE PATIENT WAS JUST RELEASED COUPLE OF DAYS AGO. THEY ARE ABLE TO ACCEPT THE PATIENT BACK. PATIENT WILL REQUIRE LEVEL OF CARE AND COVID RESULTS. MANAGEMENT ASSISTANT [facility]
--- NOTE | 2020-03-16 11:45 | NUR ---
Occupational Therapy evaluation completed on four with full evaluation to follow. Recommend occupational therapy per plan of care and SNF upon discharge. Thank you for this referral. Regine Shah OTR/L
--- NOTE | 2020-03-16 11:45 | NUR ---
PRN ATIVAN PO GIVEN FOR ANXIETY, PT IS CRYING AND STRESSED OUT. WILL MONITOR FOR EFFECTIVENESS
--- NOTE | 2020-03-16 11:55 | NUR ---
PHYSICAL THERAPY Physical Therapy evaluation completed on 4th floor with full evaluation to follow. Recommend physical therapy per plan of care and SNF upon discharge. Thank you for this referral. Mabel Gan PT
[2020-03-16 12:00] VITALS: BP 154/61
--- NOTE | 2020-03-16 12:30 | NUR ---
ATIVAN EFFECTIVE PT NO LONGER CRYING
--- NOTE | 2020-03-16 13:10 | NUR ---
SHIPYARD SUPERVISOR SPOKE WITH THE PATIENT AT BEDSIDE. THE PATIENT STATED SHE WAS RELEASED FROM [facility] ON Thursday03/14/2020 AFTER BEING THERE FOR ALMOST A YEAR. PATIENT STATED SHE RETURNED HOME TO RESIDE WITH HER OF 28 YEARS. HOWEVER, HER REFUSED TO ASSIST HER WITH ADLS/IADLS AND WAS VERY HOSTILE TOWARDS HER. PATIENTS STATED HE WAS HER AND MOVING OUT. PATIENT REFLECTED AND STATED THAT IF HER WOULD HAVE DONE THIS WHILE SHE WAS IN THE [facility] IT WOULD NOT HAVE BEEN SO BAD TO PROCESS. PATIENT STATES THAT SHE HAS ANIXETY ABOUT RETURNING TO THE [facility] BECAUSE THE RESIDENTS WILL "CHATTER" ABOUT HER RETURN. PATIENT BECAME TEARFUL AGAIN WHILE ON THIS TOPIC. THE PATIENT INFORMED THIS SHIPYARD SUPERVISOR THAT SHE WAS TO HAVE [employer] AND [employer] [facility] INTO THE HOME BUT THEY DID NOT START DUE TO HER RETURNING TO THIS FACILITY. THE PATIENT STATED THAT SHE DOES NOT FEEL SAFE TO RETURN TO HER HOME BECAUSE HER DID NOT KEEP THE BEST COMPANY WHILE SHE WAS AWAY. THE PATIENT STATED SHE DOES HAVE A GREAT FAMILY SUPPORT. PATIENT EXPLAINED HER LIFE HISTORY. 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 ONE OF THE PATIENTS BROTHERS (PAYAM) IS A PSYCHOLOGIST. THE PATIENT STATED HER SIBLINGS ARE VERY INVOLVED IN HER CARE. THE PATIENT ALSO STATED THAT SHE DOES BELIEVE IN GOD AND PRAYER. THE PATIENT BREIFLY DISCUSSED GOALS SHE WOULD LIKE TO ACCOMPLISH FOR HERSELF SUCH WALKING BETTER, GETTING HER LICENSE RENEWED, AND BEING ABLE TO DRIVE AGAIN. WHEN TALKING TO THE PATIENT ABOUT HER DISCHARGE PLANS. SHE IS UNDECIDED AT THIS TIME. THE PATIENT STATED THAT HER BROTHER PAYAM HAS OFFERED BEFORE FOR HER TO LIVE WITH HIM AND HIS FAMILY. THE PATIENT IS DEBATING ON RETURNING TO [facility]. THE PATIENT WAS ALSO GIVEN THE OPTION TO DISCUSS SBHU WITH HER DOCTORS HERE DUE TO THE SERVERITY OF MULTIPLE LIFE CHANGES, ANXIETY AND DEPRESSION. PATIENT UNDERSTOOD. PATIENT STATED SHE WANTED TO SPEAK WITH HER SIBLINGS ABOUT ALL HER OPTIONS. SHIPYARD SUPERVISOR SPOKE TO EAR NOSE THROAT PHYSICIAN SAMY AND ALAYNA DE LA GARZA.
--- NOTE | 2020-03-16 14:27 | NUR ---
PT HAD A BOWEL MOVEMENT AND IS CHANGED. LEAVING FLOOR FOR [facility]
--- NOTE | 2020-03-16 15:15 | NUR ---
SPOKE TO TRACE RAMÍREZ REGARDING PT CT RESULTS. SHE STATES TO GET AHOLD OF DR ESCALANTE WITH THE RESULTS WELL
--- NOTE | 2020-03-16 15:30 | NUR ---
CATHETER PLACED, PATIENT TOLERATED WELL. 500 OUPUT NOTED. CATHETER SECURED TO RIGHT LEG IV started right hand with #22 protective cath after 1 attempts. Site prepped with Chloroprep. Sterile dressing applied. Patient tolerated procedure well. FREDERIC JAMES
[2020-03-16 16:00] VITALS: BP 138/53
--- NOTE | 2020-03-16 16:29 | NUR ---
CONSULT MESSAGE FOR [facility] LEFT WITH ANSWERING SERVICE
--- NOTE | 2020-03-16 17:10 | NUR ---
ATTMEPTED TO CALL DR ESCALANTE TO LET HIM KNOW CT PELVIS FINDINGS, THERE WAS NO ANSWER
--- NOTE | 2020-03-16 17:12 | NUR ---
SPOKE TO DR ESCALANTE ABOUT CT PELVIS RESULTS, HE STATES HE WILL FOLLOW UP WITH PATIENT
[2020-03-16 20:00] VITALS: BP 131/51
--- NOTE | 2020-03-16 22:14 | NUR ---
24 HR chart check completed.
[2020-03-17] VITALS: BP 124/49
--- NOTE | 2020-03-17 05:30 | NUR ---
REPACKED WOUND TO COCCYX. PATIENT REPOSTIONED FOR COMFORT.
[2020-03-17 08:00] VITALS: BP 130/52
--- NOTE | 2020-03-17 10:00 | NUR ---
DR. ESCALANTE ROUNDED AND CHANGED DRESSING. NO SURGERY NEEDED.
[2020-03-17 12:00] VITALS: BP 126/47
[2020-03-17 16:00] VITALS: BP 115/42
--- NOTE | 2020-03-17 19:30 | NUR ---
PATIENT RESTING IN BED. DENIES ANY NEEDS AT THIS TIME. STATES SHE DID HAVE A LITTLE BIT OF DIARRHEA EARLIER TODAY BUT IT SEEMS TO BE GETTING BETTER. WOUND TO COCCYX PACKED AND INTACT. ASSESSMENT COMPLETE. RESPS EASY AND REGULAR. CALL LIGHT IN REACH.
--- NOTE | 2020-03-17 19:49 | NUR ---
24 HR chart check completed.
[2020-03-17 20:00] VITALS: BP 116/43
--- NOTE | 2020-03-17 22:00 | NUR ---
PATIENT BATHED AND CHANGED WOUND TO COCCYX AND REPACKED AT THIS TIME AND COVERED WITH AN ABD PAD. PULLED UP AND REPOSITIONED IN BED FOR COMFORT.
[2020-03-18] VITALS: BP 106/45
[2020-03-18 08:00] VITALS: BP 125/50
--- NOTE | 2020-03-18 08:00 | NUR ---
PATIENT SLEEPING NO COMPLAINTS.
--- NOTE | 2020-03-18 11:30 | NUR ---
PATIENT WOUND DRESSING CHANGED PER ORDER AND WOUND CULTURE OBTAINED. RIVAS HAS BEEN REMOVED.
[2020-03-18 12:00] VITALS: BP 134/63
[2020-03-18 16:00] VITALS: BP 120/62
--- NOTE | 2020-03-18 19:30 | NUR ---
ASSUMED CARE FOR THIS PT AT THIS TIME. PT INCONTINENT OF URINE AND LOOSE BM. INCONTINENCE CARE GIVEN AND PT POSITIONED ON LEFT SIDE. CALL LIGHT IN REACH. BED ALARM ON.
[2020-03-18 20:00] VITALS: BP 125/69
[2020-03-19] VITALS: BP 123/55
[2020-03-19 06:25] LABS: BASO % 0.5 % (0.0-1.0); EOS # 0.3 10*3/uL (0.0-0.4); EOS % 3.1 % (1.0-4.0); HEMATOCRIT 39.9 % (37.0-47.0); LYMPH # 1.5 10*3/uL (1.3-4.4); LYMPH % 17.4 % (27.0-41.0); MEAN CELL VOLUME 88.5 fl (81.0-99.0); MEAN CORPUSCULAR HGB 25.5 pg (27.0-31.0); MEAN CORPUSCULAR HGB CONC 28.8 g/dl (33.0-37.0); MEAN PLATELET VOLUME 11.3 fl (9.6-12.3); MONO # 0.9 10*3/uL (0.1-1.0); MONO % 10.4 % (3.0-9.0); NEUT # 5.9 10*3/uL (2.3-7.9); NEUT % 68.1 % (47.0-73.0); PLATELET COUNT AUTOMATED 200 10*3/uL (130-400); RED BLOOD COUNT 4.51 10*6/uL (4.10-5.10); RED CELL DISTRI WIDTH 16.8 % (0-14.5); WHITE BLOOD COUNT 8.6 10*3/uL (4.8-10.8)
[2020-03-19 06:30] LABS: CREATININE 1.65 mg/dL (0.55-1.02)
--- NOTE | 2020-03-19 07:45 | NUR ---
24 HR chart check completed.
--- NOTE | 2020-03-19 07:48 | NUR ---
OT NOTE A duplicate occupational therapy evaluation was received. Patient is currently on caseload. Will continue with POC as able. Thank you. Regine Shah OTR/L
[2020-03-19 08:00] VITALS: BP 133/51
--- NOTE | 2020-03-19 08:00 | NUR ---
Patient resting quietly with no c/o discomfort. Respirations easy and regular. Vital signs stable. No overt distress. CARROLL LOWE
--- NOTE | 2020-03-19 08:05 | NUR ---
OT NOTE Pt was seen this A.M. 1:1 for 25 minute OT session. Upon arrival pt was supine in bed. Pt identified by name and and had complaints of 4-5/10 sacral pain. Pt tranferred supine to sit EOB with modA for assist with UB. While sitting EOB requested for pt to peng B socks and pt reported that she was unable stating "I use a sock aid everyday at home" resulting in maxA for donning of B socks. Pt completed multiple sit to stand transfers from bed level with Ana and use of w/w for UE support. Challenged pt's static standing tolerance needed for increased I in self care tasks and functional transfers. Pt was able to tolerate aprox 50-60 seconds at a time before sitting due to fatigue. This therapist then provided pt with a bedside commode and educated pt on proper step sequence. Sit to stand completed from bed level with Ana and use of w/w followed by standing pivot from the EOB to the bedside commode with CGA. After a seated rest break sit to stand completed from bedside commode with Ana followed by standing pivot from the bedside commode to the EOB with CGA and use of w/w. While sitting EOB pt completed BUE towel exercises with min resistance over all planes for 1 X 10 to increase and restore maximum functional strength. Pt tolerated ther ex well. Pt transferred sit to supine with modA and was repositioned in bed with maxA X 2. There she was left with bed rails up, call light in hand, and tray table in place. Continue with rec D/C plan to SNF. GILMAR Urrutia
--- NOTE | 2020-03-19 08:15 | NUR ---
PHYSICAL THERAPY Patient seen this am 1;1 for therapy visit and was supine in bed upon therapist arrival. Patient identified by name / and reports 4/10 Sacral area pain. Patient was pleasant this morning, eager to get out of bed and walk so she could go home. OT marketing support assistant was present for observation only this session as patient became emotional at times talking about her home situation. Patient transfers supine to sit EOB with MOD A x 1, tolerating several minutes static EOB sit, SBA x 1. Patient performed several sit to stand transfers, use of wh walker standing support, MIN A, tolerating 50 seconds static stand first trial and 1 minute second trial. Patient also able to take 3-4 side steps to R side and completed SPT to BSC, wh walker, MIN A, requiring v/c for improved safety while backing up to toilet, including reaching back with hands prior to sitting down. Patient returned to supine in bed, MAX A secondary to picking patient legs up. Patient able to assist with HOB positioning, MIN A and remained in bed with call light, tray table, telephone, B heel protectors. Will continue per POC as tolerated, total treatment time 17 minutes. Vance Avalos, PLATE GAUGER
--- NOTE | 2020-03-19 08:21 | NUR ---
CUSTOMER CONTACT REPRESENTATIVE FAXED LEVEL OF CARE TO [facility].
--- NOTE | 2020-03-19 10:29 | NUR ---
CLIN NURSE SPEC SPOKE WITH THE PATIENT. PATIENT STATED THAT HER GOAL IS TO RETURN HOME WITH PASSPORT SERVICES AND HOME HEALTH. THE PATIENT STATED SHE DOES HAVE A RAMP IN THE FRONT AND REAR OF HOME. PATIENT HAS A FFW, WHEEL CHAIR, BEDSIDE COMMODE, AND SHOWER CHAIR. PATIENT STATED THAT HER SIBILINGS LIVE APPROXIMATELY 15 MINUTES AWAY AND WOULD BE AVAILABLE IF SHE NEEDED ASSISTANCE. PATIENT STATED HER SISTER WOULD GET HER GROCERIES IF NEEDED. CLIN NURSE SPEC EXPLAINED THE NEED FOR ANOTHER DISCHARGE PLAN INCASE THIS IS NOT POSSIBLE WITH HER WOUND. PATIENT STATED SHE WOULD RETURN HOME TO HER BROTHER TD LEONE. THE LAST OPTION WOULD BE TO GO TO [facility] IN [place]. PATIENT ASKED FOR THE CONTACT INFORMATION FOR [facility] AND FOR SOCIAL SECURITY ADMIN OFFICE. CLIN NURSE SPEC PROVIDED HER WITH THE CONTACT NUMBERS. CLIN NURSE SPEC ATTEMPTED TO REACH OUT TO PASSPORT SERVICES 2X TO NO ANSWER CLIN NURSE SPEC WILL CONTINUE TO REACH OUT TO THEM.
--- NOTE | 2020-03-19 11:01 | NUR ---
SITA REACHED BACK OUT TO [facility]. PATIENTS HAIR BOILER OPERATOR IS ROQUE LEON [phone]. SHE WILL NOT BE AVAILABLE UNTIL 12PM TODAY. SITA WILL REACH OUT TO HER AT THAT TIME.
--- NOTE | 2020-03-19 11:14 | NUR ---
SITA RECEIVED CALL FROM ROQUE LEON. THE PATIENTS PASSPORT SERVICES ARE STILL IN THE REFERRAL PROCESS. THE PATIENT HAS REFERRALS OUT FOR AIDES, DELIVERED MEALS, AND LIFE ALERT. HOWEVER, PER ROQUE, THE AIDES IS A LENGTHY PROCESS THAT COULD TAKE WEEKS/MONTHS TO GET INTO PLACE. SITA EXPLAINED THE A REFERRAL WOULD BE SENT FOR THE PATIENT TO HAVE HOME HEALTH: AIDES, RNS, THERAPIES, SW. IF THE PATIENT CHOOSES TO RETURN HOME. SITA ALSO EXPLAINED THE PATIENT HAS 2 BACK UP PLANS: HOME WITH THE BROTHER OR [facility] IN [place]. ROQUE ASKED FOR A VERBAL UPDATE. SITA PROVIDED A CLINICAL UPDATE.
[2020-03-19 12:00] VITALS: BP 109/60
[2020-03-19 16:00] VITALS: BP 146/50
[2020-03-19 20:00] VITALS: BP 133/55
[2020-03-20] VITALS: BP 107/57
[2020-03-20 08:00] VITALS: BP 132/58
--- NOTE | 2020-03-20 08:50 | NUR ---
OFF FLOOR FOR MRI.
--- NOTE | 2020-03-20 09:00 | NUR ---
case management visits with patient, discussed with her a discharge plan, she stated she was returning home when discharged, discussed with her home health services and that she wanted [facility] home health when discharged, she stated she wanted home health but not [facility], she would like [facility] to see her at home, case management will send the referral to [facility] for when patient is discharged to home
--- NOTE | 2020-03-20 10:01 | NUR ---
HOLDING 1000 AM MEDS FOR POSSIBLE BONE SCAN.
[2020-03-20 12:00] VITALS: BP 124/71
--- NOTE | 2020-03-20 14:10 | NUR ---
PHYSICAL THERAPY Patient seen this pm 1:1 for therapy visit and was supine in bed upon therapist arrival. Patient identified by name / and reports only chronic Sacral area soreness. OT assistant customer service manager was present this afternoon for observation only as patient transfers supine to sit EOB with MOD A x 1, then sit to stand MIN A with use of walker standing support. Patient completed SPT to BSC, walker, CGA, including 3-4 forward steps, demonstrating very slow, cautious step sequence. Patient returned to EOB sit and recorded Spo2 91%, HR 85 bpm on room air and after brief seated rest break ambulated 15'x 1, walker, CGA, demonstrating slow, steady yenni with Fair safety awareness. Patient returned to EOB sit and tolerated approx 10 minutes static EOB sit, SBA without c/o. Patient transfered sit to supine, MOD A and remained in bed with call light, tray table, telphone as her Nurse arrived. Will continue per POC as tolerated, total treatment time 23 minutes. Vance Avalos, EMERGENCY GENERATOR MECHANIC
--- NOTE | 2020-03-20 14:36 | NUR ---
OT NOTE Pt was sitting up in bed agreeable to a 1:1 25 minute therapy session. Pt was identified by name and date of with no complaints to date. MaxA to don socks due to limited ROM, pt stated she uses a sock aide at home. ModA for supine to EOB. Sit-stand Ana with w/w for upper body support. Stand-pivot to BSC with w/w CGA for safety. BSC back to EOB CGA, O2 SATS read 90% at 2L with a heart rate of 72at rest. Pt was able to sit EOB unsupported for 10 minutes. Pt completed UB exercises with towel 2X10 with moderate resistance. Pt was able to tolerate walking from bed to door with mild signs of fatigue. EOB to supine modA for BLE. Pt was left in bed with call light in reach. Continue d/c recommended to SNF. Regine BLANCA/VELMA Slaughter/Charis
--- NOTE | 2020-03-20 15:20 | NUR ---
patient information faxed to [facility] for when she is discharged to home
[2020-03-20 16:00] VITALS: BP 140/51
[2020-03-20 20:00] VITALS: BP 147/56
--- NOTE | 2020-03-20 22:00 | NUR ---
TYLENOL ADMINISTERED FOR PT C/O 05/05 COCCYX PAIN R/T WOUND. WILL MONITOR AND REASSESS.
--- NOTE | 2020-03-20 22:46 | NUR ---
PT STATES TYLENOL WAS EFFECTIVE.
[2020-03-21] VITALS: BP 136/48
[2020-03-21 06:53] LABS: BASO # 0.1 10*3/uL (0.0-0.1); EOS # 0.2 10*3/uL (0.0-0.4); EOS % 3.3 % (1.0-4.0); HEMATOCRIT 40.7 % (37.0-47.0); LYMPH # 1.9 10*3/uL (1.3-4.4); LYMPH % 26.1 % (27.0-41.0); MEAN CELL VOLUME 89.3 fl (81.0-99.0); MEAN CORPUSCULAR HGB 26.1 pg (27.0-31.0); MEAN CORPUSCULAR HGB CONC 29.2 g/dl (33.0-37.0); MONO # 0.7 10*3/uL (0.1-1.0); NEUT # 4.4 10*3/uL (2.3-7.9); NEUT % 60.1 % (47.0-73.0); PLATELET COUNT AUTOMATED 220 10*3/uL (130-400); RED BLOOD COUNT 4.56 10*6/uL (4.10-5.10); RED CELL DISTRI WIDTH 16.7 % (0-14.5); WHITE BLOOD COUNT 7.4 10*3/uL (4.8-10.8)
[2020-03-21 07:20] LABS: CREATININE 1.8 mg/dL (0.55-1.02); POTASSIUM 4.8 mmol/L (3.5-5.1)
--- NOTE | 2020-03-21 07:40 | NUR ---
PHYSICAL THERAPY Patient seen this am 1:1 for therapy visit and was just awakening supine in bed upon therapist arrival. Patient identified by name / and was joined by OT supply assistant this morning for observation only this session. Patient reports no new c/o's other than chroic Sacral area soreness. Patient transfers supine to sit EOB with MOD A, demonstrating increased difficulty with scooting out to EOB secondary to Bariatric air mattress inflation. Patient tolerates 5-6 minutes static EOB sit, SBA to fully awaken and performed several sit to stand transfers MIN A, with use of wh walker standing support. Patient needed v/c to improve standing posture, with head up and shoulders back, demonstrating quick onset of fatigue. Patient also completed SPT to BSC, wh walker, CGA, demonstrating Fair+ safety awareness. Patient returned to supine in bed, MAX A help with B LE's and was able to assit with HOB of positioning, MIN A. Patient remained in bed with call light, tray table, telephone and B heel protectors. Will continue per POC as tolerated, total treatment time 16 minutes. Vance Avalos, SOFT CRAB SHEDDER
[2020-03-21 08:00] VITALS: BP 103/56
--- NOTE | 2020-03-21 08:13 | NUR ---
OT NOTE Pt was laying supine in bed with head slightly elevated agreeable to 30 minutes therapy session. Pt was identified by name and date of with no complaints to date. ModA X2 for supine to EOB due to just waking up. Sit-stand CGA with w/w for UB support, pt was able to tolerate 1 minute standing the first attempt and 40 seconds the second attempt due to fatigue. Stand pivot from EOB to BSC CGA with w/w, BSC to EOB CGA with w/w. Pt was educated on the use of a sock aide to peng socks, Ana to get sock over top of sock aide, rest of task completed with SBA. Pt was educated on use of a food critic to doff socks and potato picker items at SBA. Pt was educated on leg graduate research assistant to help assist with getting back into bed however required maxA due to height of the bed and fatigue. Pt was able to pull self up in bed at CGA. Pt was left in bed with alarm on and call light in reach. Continue d/c recommended to SNF. RIANNA Iverson/VELMA Slaughter/Charis
--- NOTE | 2020-03-21 08:17 | NUR ---
SUPERVISOR TOY PARTS FORMER FAXED REFERRAL OVER TO [facility] FOR REVIEW.
--- NOTE | 2020-03-21 09:00 | NUR ---
case management visits with patient, discused with her if she would need superintendent container terminal iv antibiotics she would need to go to a short term alf, patient questioned if [facility] would administer the iv antibiotics, educated her that the [facility] nurse will teach someone in the house to administer the iv, they are not available to administer them every time they are due, educated patient that case management didn't feel she was safe to administer them alone, she was agreeable. discussed with her a short term alf for the duration of the iv antibiotics and she was agreeable, also discussed with her that her last choice for a SNF was the [facility]. she asked if there were any facilities in the [place] Area, gave her a list of local facilities, she stated she would like referred to the [facility], nurse discharge planner will send referral, case management will follow
--- NOTE | 2020-03-21 09:47 | NUR ---
COOKER CLEANER ALSO FAXED REFERRAL OVER TO [facility] FOR REVIEW.
[2020-03-21 12:00] VITALS: BP 124/50
--- NOTE | 2020-03-21 14:30 | NUR ---
[facility] IS ABLE TO ACCEPT THE PATIENT. [facility] HAS DENIED THE PATIENT. PRINTING PRESS MACHINE OPERATOR IS AWARE.
--- NOTE | 2020-03-21 15:19 | NUR ---
ABSENCE MANAGEMENT CONSULTANT RECEIVED CALL FROM PATIENTS BROTHER PAYAM. PAYAM ASKED ABOUT DISCHARGE PLANS. ABSENCE MANAGEMENT CONSULTANT EXPLAINED. PAYAM ASKED ABOUT PT/OT RECOMMENDATIONS. ABSENCE MANAGEMENT CONSULTANT EXPLAINED SNF. ABSENCE MANAGEMENT CONSULTANT EXPLAINED THAT THE PATIENT HAS BEEN REFERRED TO FACILITIES. ABSENCE MANAGEMENT CONSULTANT EXPLAINEED THE PATIENT WAS WANTING TO GO HOME WITH HOME HEALTH. HE STATED THAT HE FEELS IT WOULD BE BEST FOR HER TO GO TO SNF AND WOULD TRY TO TALK TO HER IN TO GOING. ABSENCE MANAGEMENT CONSULTANT EXPLAINED THAT THE PATIENT HAS BEEN REFERRED TO 1. [facility], 2. [facility] [place], 3. [facility]. ABSENCE MANAGEMENT CONSULTANT EXPLAINED CORN[facility] DECLINED THE PATIENT AND THAT [facility] HAD ACCEPTED HER. HE STATED HE WOULD SPEAK WITH HER. CASE MANAGERMarvin IS AWARE.
[2020-03-21 16:02] VITALS: BP 133/53
--- NOTE | 2020-03-21 19:10 | NUR ---
REPORT RECEIVED. PT WATCHING TV AT THIS TIME. PT VOICES NO COMPLAINTS AT THIS TIME. HEEL PROTECTORS IN PLACE, CALL LIGHT IN REACH
[2020-03-21 20:00] VITALS: BP 124/51
--- NOTE | 2020-03-21 21:00 | NUR ---
NEW IV STARTED IN LEFT FOREARM SIZE 22 GAUGE. HEP LOCKED. NO COMPLAINTS VOICED. CALL LIGHT IN REACH
[2020-03-22] VITALS: BP 119/54
--- NOTE | 2020-03-22 | NUR ---
PT ASLEEP AT THIS TIME.
--- NOTE | 2020-03-22 03:00 | NUR ---
PT ASLEEP. RESPIRATIONS EASY. NO S/S OF DISTRESS. CALL LIGHT IN REACH
--- NOTE | 2020-03-22 05:00 | NUR ---
IN TO SEE PT. PT JUST FINISHED GETTING BED SIDE BATH. PT VERBALIZES NO COMPLAINTS. MORNING MEDICATIONS GIVEN. WOUND DRESSING CHANGED AND INTACT AT THIS TIME. CALL LIGHT IN REACH
[2020-03-22 07:10] LABS: BASO # 0.1 10*3/uL (0.0-0.1); BASO % 0.8 % (0.0-1.0); EOS # 0.3 10*3/uL (0.0-0.4); EOS % 3.6 % (1.0-4.0); HEMATOCRIT 42.6 % (37.0-47.0); LYMPH # 1.6 10*3/uL (1.3-4.4); LYMPH % 21.1 % (27.0-41.0); MEAN CELL VOLUME 89.1 fl (81.0-99.0); MEAN CORPUSCULAR HGB 25.5 pg (27.0-31.0); MEAN CORPUSCULAR HGB CONC 28.6 g/dl (33.0-37.0); MEAN PLATELET VOLUME 11.6 fl (9.6-12.3); MONO # 0.6 10*3/uL (0.1-1.0); MONO % 8.6 % (3.0-9.0); NEUT # 4.8 10*3/uL (2.3-7.9); NEUT % 65.2 % (47.0-73.0); PLATELET COUNT AUTOMATED 235 10*3/uL (130-400); RED BLOOD COUNT 4.78 10*6/uL (4.10-5.10); RED CELL DISTRI WIDTH 16.7 % (0-14.5); WHITE BLOOD COUNT 7.4 10*3/uL (4.8-10.8)
[2020-03-22 07:35] LABS: CREATININE 1.83 mg/dL (0.55-1.02); POTASSIUM 4.5 mmol/L (3.5-5.1)
[2020-03-22 08:00] VITALS: BP 122/93
--- NOTE | 2020-03-22 08:50 | NUR ---
RADIO COMMENTATOR SPOKE TO THE PATIENT AT BEDSIDE. RADIO COMMENTATOR EXPLAINED RECEIVED A CALL FROM HER BRTOHER HARE. RADIO COMMENTATOR EXPLAINED THAT THE REFERRAL TO [facility] WAS DENIED. RADIO COMMENTATOR EXPLAINED [facility] HAS ACCEPTED HER. PATIENT STATED THAT IF SHE HAS TO BE REFERRED ANYWHERE SHE WOULD LIKE TO BE REFERRED BACK TO [facility] BECAUSE "THEY ARE LIKE FAMILY TO ME." RADIO COMMENTATOR SPOKE WITH [facility]. RADIO COMMENTATOR TO FAX UPDATES TO [facility] FOR REVIEW. LEVEL OF CARE HAS BEEN COMPLETED FOR [facility].
--- NOTE | 2020-03-22 09:57 | NUR ---
SITA RECEIVED CALL FROM ALAYNA BLANCA. EVENT CREW TECHNICIAN SPOKE WITH THE PATIENT AT BEDSIDE. PATIENT IS TEARFUL. PATIENT STATED SHE IS WORRIED ABOUT HER HAVING ACCESS TO HER SSI. EVENT CREW TECHNICIAN EXPLAINED SHE COULD REGISTER FOR A NEW ACCOUNT ONLINE AND CONTACT [facility] TO HAVE THE FUNDS DEPOSITED INTO THE NEW ACCOUNT. PATIENT STATED SHE BANK WITH [facility]. EVENT CREW TECHNICIAN CONTACTED [facility] TO MAKE SURE THIS WOULD BE POSSIBLE. SITA SPOKE WITH REP VAUGHN WHO STATED. YES, THE PATIET CAN CREATE AN ACCOUNT ONLINE AND WOULD HAVE TO CONTACT [facility] TO HAVE THE ACCOUNT ON FILE WITH SSI CHANGED. SITA WILL SPEAK WITH THE PATIENT.
--- NOTE | 2020-03-22 10:20 | NUR ---
PHYSICAL THERAPY Patient seen this am 1;1 for therapy visit and was supine in bed upon therapist arrival. Patient identified by name / and reports no new c/o's other than increased gerneralized weakness. OT machine operator assistant was also present for observation this session as patient presented with continuos IV treatment, transfering supine to sit EOB with MOD A, tolerating 7-8 minutes static EOB sit, SBA, without c/o. Patient performed several sit to stand transfers, use of wh walker, CGA, tolerating approx 3 minutes static stand first trial and 90 seconds during second trial. Patient stated she was too tired to attmept gait ex this morning and transfered sit to supine, MOD A x 2, needing therapist assist with B LE's. Patient remained in bed with call light, tray table and telephone. Will continue per POC as tolerated, total treatment time 16 minutes. Vance Avalos, FINAL RAIL CUTTER
--- NOTE | 2020-03-22 10:43 | NUR ---
OT NOTE Pt was laying supine in bed with head slightly elevated agreeable to 1:1 30 minute OT session. Pt was identified by name and date of with complaints of fatigue to date. MaxA for changing depends due to incontinence. Transferred Supine to EOB MaxA X2 due to air mattress slowly deflating. Pt was able to sit EOB unsupported to brush hair with balance at good-. Ana to don socks with sock aide to get sock over edge of sock aide, SBA to pull the sock up using sock aide and title closer. Sit-stand Ana with w/w for UB support. Pt was able to tolerate a 3 minute stand first attempt before feeling fatigued, however could only tolerate 1 minute and 36 seconds the second attempt before feeling fatigue. Pt completed UB exercises with towel 2X10 at moderate resistance to increase strenght for ADL tasks. ModA when using leg lift to lift legs into bed due to bottom of air mattress being too elevated. Pt was able to pull self over in bed, but required modA when pulling self up in bed due to fatigue. Pt used title closer to doff socks at SBA. Pt was left in bed with alarm on and call light in reach. Continue d/c recommended to SNF. RIANNA Iverson/VELMA Slaughter/Charis
[2020-03-22 12:00] VITALS: BP 135/55
--- NOTE | 2020-03-22 12:17 | NUR ---
STEAM BRUSH OPERATOR SPOKE WITH THE PATIENT. STEAM BRUSH OPERATOR PROVIDED THE PATIENT WITH INFORMATION FOR [facility] AND HOW TO GO ABOUT OBTAINING A NEW BANK ACCOUNT.
[2020-03-22] MEDS ORDERED: ZOSYN 3.373.375 GM/1 IV (14:44)
[2020-03-22 15:46] LABS: CREATININE 1.83 mg/dL (0.55-1.02); POTASSIUM 4.5 mmol/L (3.5-5.1)
--- NOTE | 2020-03-22 15:54 | NUR ---
SENIOR TRAINING AND DEVELOPMENT REP NOTIFIED OF PATIENT DISCHARGE. SENIOR TRAINING AND DEVELOPMENT REP SPOKE WITH ALAYNA BLANCA. SENIOR TRAINING AND DEVELOPMENT REP SPOKE WITH [facility] THEY WILL BE ABLE TO TRANSPORT AFTER 5PM. THEY WILL CALL THE RN STATION WITH A MORE SPECIFIC TIME FRAME. SENIOR TRAINING AND DEVELOPMENT REP NOTIFIED [facility] AND LEFT A MESSAGE ON [employer] PHONE EXPLAINING THE DISCHARGE/TRANSPORT. SENIOR TRAINING AND DEVELOPMENT REP FAXED DISCHARGE ORDERS TO [facility]. SENIOR TRAINING AND DEVELOPMENT REP FAX [facility] TO [facility].
[2020-03-22 16:00] VITALS: BP 109/70
--- NOTE | 2020-03-22 17:30 | NUR ---
REPORT GIVEN TO MARÍA AT [facility].
--- NOTE | 2020-03-22 18:18 | NUR ---
AWAITING [facility] TO TRANSPORT PT. STATED THEY WILL BE HERE SOON THEY GET A SECOND CREW.
--- NOTE | 2020-03-22 20:37 | NUR ---
Discharge instructions reviewed with patient/family. Patient receptive and verbalizes understanding. Follow-up care arranged. Written instructions given to patient/family. OFE KAMINSKI
--- NOTE | 2020-03-23 07:39 | NUR ---
OCCUPATIONAL THERAPY CO-SIGN I approve of the Occupational Therapy notes written above. ALEXYS DESHPANDE, OTR/L
--- NOTE | 2020-03-23 08:50 | NUR ---
PHYSICAL THERAPY CO-SIGN I approve of the Physical Therapy notes written above. MAYTE BOYKIN, PT, DPT
== END 2020-03-22 20:37 | DRG 384 ==
LOC: ED 11:06 → 4E 13:05 → EDHOLD 13:05 → 4E 13:39
PROVIDERS: Emergency Medicine; Hospitalist; Internal Medicine; Podiatrist Foot & Ankle Surgery; ADMIT Internal Medicine; ATTEND Internal Medicine
DX: S31.000A Unspecified open wound of lower back and pelvis without penetration into retroperitoneum, initial encounter (principal); N17.0 Acute kidney failure with tubular necrosis; R19.7 Diarrhea, unspecified; E86.0 Dehydration; N18.3 Chronic kidney disease, stage 3 (moderate); E83.41 Hypermagnesemia; E43 Unspecified severe protein-calorie malnutrition; E66.01 Morbid (severe) obesity due to excess calories; E11.22 Type 2 diabetes mellitus with diabetic chronic kidney disease; E11.65 Type 2 diabetes mellitus with hyperglycemia; E11.42 Type 2 diabetes mellitus with diabetic polyneuropathy; F33.9 Major depressive disorder, recurrent, unspecified; F41.9 Anxiety disorder, unspecified; E11.69 Type 2 diabetes mellitus with other specified complication; Z20.828 Contact with and (suspected) exposure to other viral communicable diseases; L89.159 Pressure ulcer of sacral region, unspecified stage; I12.9 Hypertensive chronic kidney disease with stage 1 through stage 4 chronic kidney disease, or unspecified chronic kidney disease; M46.28 Osteomyelitis of vertebra, sacral and sacrococcygeal region; Z88.1 Allergy status to other antibiotic agents; Z79.4 Long term (current) use of insulin; Z91.040 Latex allergy status; Z90.49 Acquired absence of other specified parts of digestive tract; Z84.89 Family history of other specified conditions; Z82.49 Family history of ischemic heart disease and other diseases of the circulatory system; Z68.43 Body mass index [BMI] 50.0-59.9, adult; X58.XXXA Exposure to other specified factors, initial encounter; Y93.89 Activity, other specified; Y92.89 Other specified places as the place of occurrence of the external cause; Y99.8 Other external cause status

== ENCOUNTER 2020-05-16 11:54 | Emergency (ER) | payer MEDICAID ==
[~2020-05-16] VITALS: Ht 162.5 cm; Wt 151.5 kg
[2020-05-16 11:54] VITALS: BP 123/71
[~2020-05-16 11:54] MED LIST changes: +ALDACTONE25 M1 PO; +ATIVAN0.5 MG PO; +EFFEXOR XR75 M1 PO; +FEROSUL325 M1 PO; +GLIPIZIDE XL2.5 M1 PO; +IBUPROFEN600 MG PO; +KLONOPIN0.5 MG PO; +MECLIZINE HCL25 M2 PO; +METFORMIN HCL500 M3 PO; +OMEPRAZOLE40 MG PO; +REMERON30 M1 PO; +TRAZODONE50 MG PO; +TUSSIN100 MG/52 PO; +VENTOLIN 02.5 MG/3 M INH; +XARE20MG PO; +ZESTRIL5 MG PO; +ZOFRAN4 MG PO; +ZOSYN 3.373.375 GM/1 IV
--- NOTE | 2020-05-16 12:35 | NUR ---
Spoke to Sue at [facility] regarding patient requesting to return to their facility from the ED. They are requesting that the HENS and LOC be completed but they are able to take the patient tonight if those are completed. senior materials planner and ED blankbook forwarder notified.
== END 2020-05-16 13:50 | disposition home or self-care (01) ==
LOC: ED 11:54
DX: R53.1 Weakness (principal); Z79.4 Long term (current) use of insulin; Z79.899 Other long term (current) drug therapy; Z91.040 Latex allergy status; Z88.8 Allergy status to other drugs, medicaments and biological substances

== ENCOUNTER → 2020-07-31 | Outpatient (CLI) | payer MEDICAID | END | disposition home or self-care (01) | LOC: WOUNDCARE 00:40 → EDSTATUS 14:40 | PROVIDERS: ATTEND Nurse Practitioner | DX: E11.622 Type 2 diabetes mellitus with other skin ulcer (principal); L89.154 Pressure ulcer of sacral region, stage 4; L98.491 Non-pressure chronic ulcer of skin of other sites limited to breakdown of skin; E11.65 Type 2 diabetes mellitus with hyperglycemia; I10 Essential (primary) hypertension; F41.9 Anxiety disorder, unspecified; Z90.710 Acquired absence of both cervix and uterus; Z79.4 Long term (current) use of insulin; Z79.899 Other long term (current) drug therapy ==

== ENCOUNTER → 2020-08-28 | Outpatient (CLI) | payer MEDICAID | LOC: WOUNDCARE 08-27 11:15 | PROVIDERS: ATTEND Nurse Practitioner | DX: E11.622 Type 2 diabetes mellitus with other skin ulcer (principal); L89.154 Pressure ulcer of sacral region, stage 4; L98.491 Non-pressure chronic ulcer of skin of other sites limited to breakdown of skin; E11.65 Type 2 diabetes mellitus with hyperglycemia; I10 Essential (primary) hypertension; F41.9 Anxiety disorder, unspecified; Z90.710 Acquired absence of both cervix and uterus; Z79.4 Long term (current) use of insulin; Z79.899 Other long term (current) drug therapy ==

== ENCOUNTER → 2020-09-18 | Outpatient (CLI) | payer MEDICAID | LOC: WOUNDCARE 00:37 | PROVIDERS: ATTEND Nurse Practitioner | DX: E11.622 Type 2 diabetes mellitus with other skin ulcer (principal); L89.154 Pressure ulcer of sacral region, stage 4; L98.491 Non-pressure chronic ulcer of skin of other sites limited to breakdown of skin; E11.65 Type 2 diabetes mellitus with hyperglycemia; I10 Essential (primary) hypertension; F41.9 Anxiety disorder, unspecified; Z90.710 Acquired absence of both cervix and uterus; Z79.4 Long term (current) use of insulin; Z79.899 Other long term (current) drug therapy ==

== ENCOUNTER → 2020-10-09 | Outpatient (CLI) | payer MEDICAID | LOC: WOUNDCARE 05:45 | PROVIDERS: ATTEND Nurse Practitioner | DX: E11.622 Type 2 diabetes mellitus with other skin ulcer (principal); L89.154 Pressure ulcer of sacral region, stage 4; L98.491 Non-pressure chronic ulcer of skin of other sites limited to breakdown of skin; E11.65 Type 2 diabetes mellitus with hyperglycemia; I10 Essential (primary) hypertension; F41.9 Anxiety disorder, unspecified; Z90.710 Acquired absence of both cervix and uterus; Z79.4 Long term (current) use of insulin; Z79.899 Other long term (current) drug therapy ==

== ENCOUNTER → 2020-10-16 | Outpatient (CLI) | payer MEDICAID | LOC: WOUNDCARE 00:38 | PROVIDERS: ATTEND Surgery | DX: E11.622 Type 2 diabetes mellitus with other skin ulcer (principal); L89.154 Pressure ulcer of sacral region, stage 4; L98.491 Non-pressure chronic ulcer of skin of other sites limited to breakdown of skin; E11.65 Type 2 diabetes mellitus with hyperglycemia; F41.9 Anxiety disorder, unspecified; I10 Essential (primary) hypertension; Z90.710 Acquired absence of both cervix and uterus; Z79.4 Long term (current) use of insulin; Z79.899 Other long term (current) drug therapy ==

== ENCOUNTER → 2020-11-06 | Outpatient (CLI) | payer MEDICAID | LOC: WOUNDCARE 00:42 | PROVIDERS: ATTEND Nurse Practitioner | DX: E11.622 Type 2 diabetes mellitus with other skin ulcer (principal); L89.154 Pressure ulcer of sacral region, stage 4; L98.491 Non-pressure chronic ulcer of skin of other sites limited to breakdown of skin; E11.65 Type 2 diabetes mellitus with hyperglycemia; I10 Essential (primary) hypertension; F41.9 Anxiety disorder, unspecified; Z90.710 Acquired absence of both cervix and uterus; Z79.4 Long term (current) use of insulin; Z79.899 Other long term (current) drug therapy ==

== ENCOUNTER → 2020-11-27 | Outpatient (CLI) | payer MEDICAID | LOC: WOUNDCARE 00:25 | PROVIDERS: ATTEND Nurse Practitioner | DX: E11.622 Type 2 diabetes mellitus with other skin ulcer (principal); L89.154 Pressure ulcer of sacral region, stage 4; L98.491 Non-pressure chronic ulcer of skin of other sites limited to breakdown of skin; E11.65 Type 2 diabetes mellitus with hyperglycemia; I10 Essential (primary) hypertension; F41.9 Anxiety disorder, unspecified; Z90.710 Acquired absence of both cervix and uterus; Z79.4 Long term (current) use of insulin; Z79.899 Other long term (current) drug therapy ==

== ENCOUNTER → 2020-12-18 | Outpatient (CLI) | payer MEDICAID | LOC: WOUNDCARE 01:23 | PROVIDERS: ATTEND Nurse Practitioner | DX: E11.622 Type 2 diabetes mellitus with other skin ulcer (principal); L89.154 Pressure ulcer of sacral region, stage 4; L98.491 Non-pressure chronic ulcer of skin of other sites limited to breakdown of skin; E11.65 Type 2 diabetes mellitus with hyperglycemia; I10 Essential (primary) hypertension; F41.9 Anxiety disorder, unspecified; Z90.710 Acquired absence of both cervix and uterus; Z79.4 Long term (current) use of insulin; Z79.899 Other long term (current) drug therapy ==

== ENCOUNTER 2021-04-18 12:58 | Inpatient (IN) | payer MEDICAID ==
[2021-04-18] VITALS (7 sets, daily range): BP systolic 99–152; BP diastolic 41–100
[~2021-04-18] VITALS: Ht 162.6 cm; Wt 158.3 kg
[2021-04-18 13:51] LABS: BASO % 0.4 % (0.0-1.0); EOS # 0.1 10*3/uL (0.0-0.4); HEMATOCRIT 42.4 % (37.0-47.0); LYMPH # 0.8 10*3/uL (1.3-4.4); LYMPH % 8.8 % (27.0-41.0); MEAN CELL VOLUME 91.2 fl (81.0-99.0); MEAN CORPUSCULAR HGB 27.1 pg (27.0-31.0); MEAN CORPUSCULAR HGB CONC 29.7 g/dl (33.0-37.0); MEAN PLATELET VOLUME 11.7 fl (9.6-12.3); MONO # 0.7 10*3/uL (0.1-1.0); MONO % 7.3 % (3.0-9.0); NEUT # 7.9 10*3/uL (2.3-7.9); NEUT % 82.1 % (47.0-73.0); PLATELET COUNT AUTOMATED 162 10*3/uL (130-400); RED BLOOD COUNT 4.65 10*6/uL (4.10-5.10); RED CELL DISTRI WIDTH 16.5 % (0-14.5); WHITE BLOOD COUNT 9.6 10*3/uL (4.8-10.8)
[2021-04-18 14:08] LABS: ALBUMIN 2.5 gm/dl (3.1-4.5); CREATININE 1.77 mg/dL (0.55-1.02); POTASSIUM 4.8 mmol/L (3.5-5.1); TOTAL PROTEIN 7.3 gm/dL (6.4-8.2)
[2021-04-18 14:24] LABS: ACT PARTIAL THROMBO TIME 25.2 SECONDS (20.0-32.1)
[2021-04-18 20:33] LABS: HEMATOCRIT 45.1 % (37.0-47.0)
[2021-04-19] VITALS: BP 104/55
[2021-04-19 06:25] LABS: BASO % 0.1 % (0.0-1.0); HEMATOCRIT 39.5 % (37.0-47.0); LYMPH # 0.7 10*3/uL (1.3-4.4); LYMPH % 6.3 % (27.0-41.0); MEAN CELL VOLUME 90.6 fl (81.0-99.0); MEAN CORPUSCULAR HGB 27.3 pg (27.0-31.0); MEAN CORPUSCULAR HGB CONC 30.1 g/dl (33.0-37.0); MEAN PLATELET VOLUME 11.8 fl (9.6-12.3); MONO # 0.6 10*3/uL (0.1-1.0); MONO % 5.7 % (3.0-9.0); NEUT # 9.4 10*3/uL (2.3-7.9); NEUT % 87.5 % (47.0-73.0); PLATELET COUNT AUTOMATED 177 10*3/uL (130-400); RED BLOOD COUNT 4.36 10*6/uL (4.10-5.10); RED CELL DISTRI WIDTH 16.5 % (0-14.5); WHITE BLOOD COUNT 10.8 10*3/uL (4.8-10.8)
[2021-04-19 06:47] LABS: POTASSIUM 4.7 mmol/L (3.5-5.1)
[2021-04-19 07:06] LABS: ALBUMIN 2.4 gm/dl (3.1-4.5); CREATININE 1.52 mg/dL (0.55-1.02); FREE T4 1.04 ng/dl (0.76-1.46); THYROID STIM HORMONE (HS) 0.637 uIU/ml (0.358-4.75); TOTAL PROTEIN 7.1 gm/dL (6.4-8.2)
[2021-04-19 08:00] VITALS: BP 92/45
[2021-04-19 09:08] LABS: VITAMIN D, 25-HYDROXY 34.2 ng/mL (30-100)
[2021-04-19 12:00] VITALS: BP 75/53
[2021-04-19 14:00] VITALS: BP 102/76
[2021-04-19 15:56] LABS: BASO % 0.3 % (0.0-1.0); EOS % 0.2 % (1.0-4.0); HEMATOCRIT 36.9 % (37.0-47.0); LYMPH # 1.1 10*3/uL (1.3-4.4); LYMPH % 10.9 % (27.0-41.0); MEAN CELL VOLUME 92.5 fl (81.0-99.0); MEAN CORPUSCULAR HGB 27.1 pg (27.0-31.0); MEAN CORPUSCULAR HGB CONC 29.3 g/dl (33.0-37.0); MEAN PLATELET VOLUME 11.6 fl (9.6-12.3); MONO # 0.8 10*3/uL (0.1-1.0); MONO % 7.7 % (3.0-9.0); NEUT # 7.9 10*3/uL (2.3-7.9); NEUT % 80.5 % (47.0-73.0); PLATELET COUNT AUTOMATED 150 10*3/uL (130-400); RED BLOOD COUNT 3.99 10*6/uL (4.10-5.10); RED CELL DISTRI WIDTH 16.7 % (0-14.5); WHITE BLOOD COUNT 9.8 10*3/uL (4.8-10.8)
[2021-04-19 16:00] VITALS: BP 117/48
[2021-04-19 20:00] VITALS: BP 98/35
[2021-04-20] VITALS: BP 107/37
[2021-04-20 04:00] VITALS: BP 147/72
[2021-04-20 06:39] LABS: BASO % 0.5 % (0.0-1.0); EOS # 0.2 10*3/uL (0.0-0.4); EOS % 2.2 % (1.0-4.0); LYMPH # 1.7 10*3/uL (1.3-4.4); LYMPH % 20.3 % (27.0-41.0); MEAN CELL VOLUME 93.4 fl (81.0-99.0); MEAN CORPUSCULAR HGB 27.3 pg (27.0-31.0); MEAN CORPUSCULAR HGB CONC 29.2 g/dl (33.0-37.0); MEAN PLATELET VOLUME 12.1 fl (9.6-12.3); MONO # 0.8 10*3/uL (0.1-1.0); NEUT # 5.6 10*3/uL (2.3-7.9); NEUT % 67.6 % (47.0-73.0); PLATELET COUNT AUTOMATED 142 10*3/uL (130-400); RED BLOOD COUNT 4.07 10*6/uL (4.10-5.10); RED CELL DISTRI WIDTH 16.8 % (0-14.5); WHITE BLOOD COUNT 8.3 10*3/uL (4.8-10.8)
[2021-04-20 07:16] LABS: ALBUMIN 2.1 gm/dl (3.1-4.5); CREATININE 1.38 mg/dL (0.55-1.02); POTASSIUM 3.9 mmol/L (3.5-5.1); TOTAL PROTEIN 6.5 gm/dL (6.4-8.2)
[2021-04-20 08:00] VITALS: BP 129/51
[2021-04-20 11:07] LABS: ACID FAST SPEC PROCESSING Tissue Grinding (.)
[2021-04-20 12:00] VITALS: BP 141/55
[2021-04-20 16:00] VITALS: BP 117/50
[2021-04-20 20:00] VITALS: BP 149/71
[2021-04-21] VITALS: BP 138/54
[2021-04-21 08:00] VITALS: BP 149/63
[2021-04-21 12:00] VITALS: BP 140/69
[2021-04-21 16:00] VITALS: BP 147/66
[2021-04-21 20:00] VITALS: BP 141/59
[2021-04-22] VITALS: BP 145/62
[2021-04-22 06:51] LABS: BASO # 0.1 10*3/uL (0.0-0.1); EOS # 0.2 10*3/uL (0.0-0.4); EOS % 2.6 % (1.0-4.0); HEMATOCRIT 40.9 % (37.0-47.0); LYMPH # 1.1 10*3/uL (1.3-4.4); LYMPH % 14.3 % (27.0-41.0); MEAN CELL VOLUME 93.2 fl (81.0-99.0); MEAN CORPUSCULAR HGB 26.9 pg (27.0-31.0); MEAN CORPUSCULAR HGB CONC 28.9 g/dl (33.0-37.0); MEAN PLATELET VOLUME 11.5 fl (9.6-12.3); MONO # 0.6 10*3/uL (0.1-1.0); MONO % 8.7 % (3.0-9.0); NEUT # 5.3 10*3/uL (2.3-7.9); NEUT % 72.9 % (47.0-73.0); PLATELET COUNT AUTOMATED 163 10*3/uL (130-400); RED BLOOD COUNT 4.39 10*6/uL (4.10-5.10); RED CELL DISTRI WIDTH 16.2 % (0-14.5); WHITE BLOOD COUNT 7.3 10*3/uL (4.8-10.8)
[2021-04-22 07:09] LABS: ALBUMIN 2.2 gm/dl (3.1-4.5); CREATININE 1.26 mg/dL (0.55-1.02); POTASSIUM 4.5 mmol/L (3.5-5.1)
[2021-04-22 09:00] VITALS: BP 137/79
[2021-04-22 12:00] VITALS: BP 152/69
[2021-04-22] MEDS ORDERED: Lantus SC (15:51)
[2021-04-22] MEDS ORDERED: XARE20MG PO (15:53)
[2021-04-22] MEDS ORDERED: GLIPIZIDE XL10 M1 PO (15:53)
[2021-04-22] MEDS ORDERED: ALDACTONE25 M1 PO (15:54)
[2021-04-22] MEDS ORDERED: LANTUS SOL100 UNIT/1 SC (15:56)
[2021-04-22] MEDS ORDERED: NOVOLOG100 UNIT/1 SQ (15:57)
[2021-04-22] MEDS ORDERED: PRAVASTATIN SOD10 MG PO (15:58)
[2021-04-22] MEDS ORDERED: METFORMIN HYDR500 MG PO (15:58)
[2021-04-22] MEDS ORDERED: TRULICITY1.5 MG/0.5 SC (15:59)
[2021-04-22 16:00] VITALS: BP 120/76
[2021-04-22] MEDS ORDERED: LASIX20 MG PO (16:00)
[2021-04-22] MEDS ORDERED: TRAMADOL HCL50 MG PO (18:16)
[2021-04-22] MEDS ORDERED: HYDROCODONE-AC1 EAC1 PO (18:17)
== END 2021-04-22 19:27 | DRG 313 ==
LOC: ED 12:58 → 4E 14:06 → EDHOLD 14:06 → 4E 19:10
PROVIDERS: Emergency Medicine; Family Medicine; Internal Medicine; Nurse Anesthetist, Certified Registered; Podiatrist; Registered Nurse; ADMIT Internal Medicine; ATTEND Internal Medicine
PROC: 0YQL0ZZ Repair Left Ankle Region, Open Approach (ICD-10-PCS; principal; 2021-04-18)
PROC: 0QSH05Z Reposition Left Tibia with External Fixation Device, Open Approach (ICD-10-PCS; 2021-04-18)
PROC: 0SSG3ZZ Reposition Left Ankle Joint, Percutaneous Approach (ICD-10-PCS; 2021-04-18)
PROC: 3E0T3BZ Introduction of Anesthetic Agent into Peripheral Nerves and Plexi, Percutaneous Approach (ICD-10-PCS; 2021-04-18)
PROC: 2W3RX1Z Immobilization of Left Lower Leg using Splint (ICD-10-PCS; 2021-04-18)
PROC: 0QSKXZZ Reposition Left Fibula, External Approach (ICD-10-PCS; 2021-04-18)
PROC: 0QSHXZZ Reposition Left Tibia, External Approach (ICD-10-PCS; 2021-04-18)
PROC: 0QSHXZZ Reposition Left Tibia, External Approach (ICD-10-PCS; 2021-04-18)
DX: S82.852B Displaced trimalleolar fracture of left lower leg, initial encounter for open fracture type I or II (principal); E66.01 Morbid (severe) obesity due to excess calories; N17.0 Acute kidney failure with tubular necrosis; E43 Unspecified severe protein-calorie malnutrition; N18.30 Chronic kidney disease, stage 3 unspecified; E11.42 Type 2 diabetes mellitus with diabetic polyneuropathy; G62.9 Polyneuropathy, unspecified; Z20.822 Contact with and (suspected) exposure to COVID-19; E11.22 Type 2 diabetes mellitus with diabetic chronic kidney disease; F32.9 Major depressive disorder, single episode, unspecified; W01.0XXA Fall on same level from slipping, tripping and stumbling without subsequent striking against object, initial encounter; E11.65 Type 2 diabetes mellitus with hyperglycemia; I12.9 Hypertensive chronic kidney disease with stage 1 through stage 4 chronic kidney disease, or unspecified chronic kidney disease; Y93.89 Activity, other specified; Z68.42 Body mass index [BMI] 45.0-49.9, adult; Z79.4 Long term (current) use of insulin; Y99.8 Other external cause status; Z88.1 Allergy status to other antibiotic agents; Z88.8 Allergy status to other drugs, medicaments and biological substances; Z79.899 Other long term (current) drug therapy; Z91.040 Latex allergy status; Z90.49 Acquired absence of other specified parts of digestive tract; Z82.49 Family history of ischemic heart disease and other diseases of the circulatory system; Y92.091 Bathroom in other non-institutional residence as the place of occurrence of the external cause

== ENCOUNTER 2021-09-19 15:03 | Inpatient (IN) | payer MEDICAID ==
[~2021-09-19] VITALS: Ht 162.6 cm; Wt 144.7 kg
[~2021-09-19 15:03] MED LIST changes: +GLIPIZIDE XL10 M1 PO; +HYDROCODONE-AC1 EAC1 PO; +LANTUS SOL100 UNIT/1 SC; +Lantus SC; +METFORMIN HYDR500 MG PO; +NOVOLOG100 UNIT/1 SQ; +PRAVASTATIN SOD10 MG PO; +TRAMADOL HCL50 MG PO; +TRULICITY1.5 MG/0.5 SC
[2021-09-19 15:05] VITALS: BP 175/85
[2021-09-19] MEDS ORDERED: DULOXETINE HCL60 MG PO (15:18)
[2021-09-19] MEDS ORDERED: HYDROXYZINE PAM25 M1 PO (15:22)
[2021-09-19] MEDS ORDERED: GLUCAGON EMERGEN1 M1 IJ (15:24)
[2021-09-19] MEDS ORDERED: GLUTOSE 1537.5 GM PO (15:25)
[2021-09-19] MEDS ORDERED: LOPERAMIDE HCL2 MG PO (15:26)
[2021-09-19] MEDS ORDERED: ONDANSETRON HYDR4 M1 PO (15:26)
[2021-09-19] MEDS ORDERED: INSULIN AS100 UNIT/2 SQ (15:29)
[2021-09-19 16:00] VITALS: BP 147/78
[2021-09-19 16:49] LABS: BASO # 0.1 10*3/uL (0.0-0.1); BASO % 0.7 % (0.0-1.0); EOS # 0.1 10*3/uL (0.0-0.4); EOS % 1.9 % (1.0-4.0); HEMATOCRIT 40.8 % (37.0-47.0); LYMPH # 1.6 10*3/uL (1.3-4.4); LYMPH % 21.9 % (27.0-41.0); MEAN CELL VOLUME 79.4 fl (81.0-99.0); MEAN CORPUSCULAR HGB 23.3 pg (27.0-31.0); MEAN CORPUSCULAR HGB CONC 29.4 g/dl (33.0-37.0); MEAN PLATELET VOLUME 10.9 fl (9.6-12.3); MONO # 0.7 10*3/uL (0.1-1.0); MONO % 8.9 % (3.0-9.0); NEUT # 4.9 10*3/uL (2.3-7.9); NEUT % 66.3 % (47.0-73.0); PLATELET COUNT AUTOMATED 247 10*3/uL (130-400); RED BLOOD COUNT 5.14 10*6/uL (4.10-5.10); RED CELL DISTRI WIDTH 19.9 % (0-14.5); WHITE BLOOD COUNT 7.4 10*3/uL (4.8-10.8)
[2021-09-19 17:04] LABS: ALKALINE PHOSPHATASE 174 U/L (45-117); BUN 18 mg/dl (7-24); CHLORIDE 107 mmol/L (98-107); CREATININE 1.24 mg/dL (0.55-1.02); LIPASE 113 U/L (73-393); POTASSIUM 3.4 mmol/L (3.5-5.1); SGOT/AST 40 IU/L (3-35); SGPT/ALT 28 U/L (12-78); SODIUM 140 mmol/L (136-145); TOTAL PROTEIN 7.5 gm/dL (6.4-8.2)
[2021-09-19 17:07] LABS: ACT PARTIAL THROMBO TIME 28.5 SECONDS (20.0-32.1)
[2021-09-19 20:00] VITALS: BP 147/78
[2021-09-19 20:30] VITALS: BP 151/76
[2021-09-19 23:13] LABS: CREATININE 1.19 mg/dL (0.55-1.02); POTASSIUM 3.6 mmol/L (3.5-5.1)
[2021-09-20] VITALS: BP 117/95
[2021-09-20 03:26] LABS: BASO % 0.5 % (0.0-1.0); EOS # 0.2 10*3/uL (0.0-0.4); EOS % 1.8 % (1.0-4.0); HEMATOCRIT 40.7 % (37.0-47.0); LYMPH # 1.6 10*3/uL (1.3-4.4); LYMPH % 20.1 % (27.0-41.0); MEAN CELL VOLUME 77.8 fl (81.0-99.0); MEAN CORPUSCULAR HGB 22.8 pg (27.0-31.0); MEAN CORPUSCULAR HGB CONC 29.2 g/dl (33.0-37.0); MEAN PLATELET VOLUME 10.9 fl (9.6-12.3); MONO # 0.7 10*3/uL (0.1-1.0); NEUT # 5.6 10*3/uL (2.3-7.9); NEUT % 69.2 % (47.0-73.0); PLATELET COUNT AUTOMATED 260 10*3/uL (130-400); RED BLOOD COUNT 5.23 10*6/uL (4.10-5.10); RED CELL DISTRI WIDTH 19.5 % (0-14.5); WHITE BLOOD COUNT 8.1 10*3/uL (4.8-10.8)
[2021-09-20 03:51] LABS: ALKALINE PHOSPHATASE 171 U/L (45-117); BUN 15 mg/dl (7-24); CHLORIDE 108 mmol/L (98-107); CHOLESTEROL 91 mg/dL (<200); CREATININE 1.24 mg/dL (0.55-1.02); LDL CHOLESTEROL 30 mg/dL (9-159); POTASSIUM 3.8 mmol/L (3.5-5.1); SGOT/AST 36 IU/L (3-35); SGPT/ALT 28 U/L (12-78); SODIUM 140 mmol/L (136-145); TOTAL PROTEIN 7.5 gm/dL (6.4-8.2); TRIGLYCERIDES 129 mg/dl (<150)
[2021-09-20 03:52] LABS: FREE T4 1.11 ng/dl (0.76-1.46)
[2021-09-20 06:39] LABS: ACT PARTIAL THROMBO TIME 28.2 SECONDS (20.0-32.1)
[2021-09-20 08:00] VITALS: BP 146/95
[2021-09-20 12:00] VITALS: BP 150/82
[2021-09-20 16:00] VITALS: BP 132/55; BP 145/78
[2021-09-20 20:00] VITALS: BP 171/66
[2021-09-21] VITALS: BP 122/59
[2021-09-21 06:28] LABS: BASO # 0.1 10*3/uL (0.0-0.1); BASO % 0.8 % (0.0-1.0); BUN 11 mg/dl (7-24); CHLORIDE 109 mmol/L (98-107); EOS # 0.3 10*3/uL (0.0-0.4); EOS % 3.4 % (1.0-4.0); HEMATOCRIT 39.6 % (37.0-47.0); LIPASE 63 U/L (73-393); LYMPH # 1.6 10*3/uL (1.3-4.4); LYMPH % 21.4 % (27.0-41.0); MEAN CELL VOLUME 80.2 fl (81.0-99.0); MEAN CORPUSCULAR HGB 23.3 pg (27.0-31.0); MEAN PLATELET VOLUME 11.3 fl (9.6-12.3); MONO # 0.6 10*3/uL (0.1-1.0); MONO % 8.4 % (3.0-9.0); NEUT % 65.7 % (47.0-73.0); PLATELET COUNT AUTOMATED 242 10*3/uL (130-400); POTASSIUM 3.6 mmol/L (3.5-5.1); RED BLOOD COUNT 4.94 10*6/uL (4.10-5.10); RED CELL DISTRI WIDTH 19.4 % (0-14.5); SODIUM 140 mmol/L (136-145); WHITE BLOOD COUNT 7.6 10*3/uL (4.8-10.8)
[2021-09-21 08:00] VITALS: BP 150/58
[2021-09-21 12:00] VITALS: BP 137/51
[2021-09-21 16:00] VITALS: BP 152/58
[2021-09-21 20:00] VITALS: BP 147/78
[2021-09-22] VITALS: BP 166/65
[2021-09-22 04:00] VITALS: BP 148/68
[2021-09-22 06:26] LABS: BASO # 0.1 10*3/uL (0.0-0.1); BASO % 0.7 % (0.0-1.0); EOS # 0.3 10*3/uL (0.0-0.4); HEMATOCRIT 41.1 % (37.0-47.0); LYMPH # 1.8 10*3/uL (1.3-4.4); LYMPH % 24.6 % (27.0-41.0); MEAN CORPUSCULAR HGB 23.5 pg (27.0-31.0); MEAN CORPUSCULAR HGB CONC 29.4 g/dl (33.0-37.0); MEAN PLATELET VOLUME 11.3 fl (9.6-12.3); MONO # 0.7 10*3/uL (0.1-1.0); MONO % 8.9 % (3.0-9.0); NEUT # 4.6 10*3/uL (2.3-7.9); NEUT % 61.5 % (47.0-73.0); PLATELET COUNT AUTOMATED 254 10*3/uL (130-400); RED BLOOD COUNT 5.14 10*6/uL (4.10-5.10); RED CELL DISTRI WIDTH 19.3 % (0-14.5); WHITE BLOOD COUNT 7.4 10*3/uL (4.8-10.8)
[2021-09-22 06:40] LABS: BUN 14 mg/dl (7-24); CHLORIDE 108 mmol/L (98-107); CREATININE 1.09 mg/dL (0.55-1.02); POTASSIUM 3.6 mmol/L (3.5-5.1); SODIUM 141 mmol/L (136-145)
[2021-09-22 08:00] VITALS: BP 154/67
[2021-09-22 12:00] VITALS: BP 152/66
[2021-09-22] MEDS ORDERED: TRAMADOL HCL50 MG PO (12:30)
== END 2021-09-22 15:56 | DRG 52 ==
LOC: ED 15:03 → 4E 17:57 → EDHOLD 17:57 → 4E 18:34
PROVIDERS: Emergency Medicine; Internal Medicine; Student in an Organized Health Care Education/Training Program; ADMIT Internal Medicine; ATTEND Internal Medicine
DX: G93.41 Metabolic encephalopathy (principal); N17.0 Acute kidney failure with tubular necrosis; C55 Malignant neoplasm of uterus, part unspecified; I12.9 Hypertensive chronic kidney disease with stage 1 through stage 4 chronic kidney disease, or unspecified chronic kidney disease; E11.22 Type 2 diabetes mellitus with diabetic chronic kidney disease; E11.65 Type 2 diabetes mellitus with hyperglycemia; N18.32 Chronic kidney disease, stage 3b; K57.90 Diverticulosis of intestine, part unspecified, without perforation or abscess without bleeding; Z20.822 Contact with and (suspected) exposure to COVID-19; E11.69 Type 2 diabetes mellitus with other specified complication; E87.6 Hypokalemia; R74.01 Elevation of levels of liver transaminase levels; E66.01 Morbid (severe) obesity due to excess calories; E11.40 Type 2 diabetes mellitus with diabetic neuropathy, unspecified; D50.9 Iron deficiency anemia, unspecified; Z79.4 Long term (current) use of insulin; Z88.1 Allergy status to other antibiotic agents; Z91.040 Latex allergy status; Z90.49 Acquired absence of other specified parts of digestive tract; Z82.49 Family history of ischemic heart disease and other diseases of the circulatory system; Z79.51 Long term (current) use of inhaled steroids; Z79.899 Other long term (current) drug therapy; Z79.1 Long term (current) use of non-steroidal anti-inflammatories (NSAID); Z68.43 Body mass index [BMI] 50.0-59.9, adult; F32.9 Major depressive disorder, single episode, unspecified

== ENCOUNTER → 2021-09-25 | Day surgery (SDC) | payer MEDICAID ==
[~2021-09-25] VITALS: Ht 162.5 cm; Wt 143.8 kg
[~2021-09-25] MED LIST changes: +DOXYCYCLINE HY100 M3 PO; +DULOXETINE HCL60 MG PO; +GLUCAGON EMERGEN1 M1 IJ; +GLUTOSE 1537.5 GM PO; +HYDROXYZINE PAM25 M1 PO; +INSULIN AS100 UNIT/2 SQ; +LOPERAMIDE HCL2 MG PO; +ONDANSETRON HYDR4 M1 PO; +XARELTO10 MG PO
[2021-09-25 07:30] VITALS: BP 173/77
[2021-09-25 10:02] VITALS: BP 125/62
[2021-09-25 10:17] VITALS: BP 126/54
[2021-09-25 10:32] VITALS: BP 114/69
== END | disposition home or self-care (01) ==
LOC: SDC 09-06 10:15
PROVIDERS: ATTEND Podiatrist
DX: T84.84XA Pain due to internal orthopedic prosthetic devices, implants and grafts, initial encounter (principal); F41.9 Anxiety disorder, unspecified; F32.9 Major depressive disorder, single episode, unspecified; I12.9 Hypertensive chronic kidney disease with stage 1 through stage 4 chronic kidney disease, or unspecified chronic kidney disease; E11.22 Type 2 diabetes mellitus with diabetic chronic kidney disease; N18.30 Chronic kidney disease, stage 3 unspecified; Y82.8 Other medical devices associated with adverse incidents

== ENCOUNTER 2021-10-16 00:02 | Emergency (ER) | payer MEDICAID ==
[~2021-10-16] VITALS: Wt 141.5 kg
[2021-10-16 00:19] LABS: BASO % 0.4 % (0.0-1.0); EOS # 0.2 10*3/uL (0.0-0.4); EOS % 2.8 % (1.0-4.0); HEMATOCRIT 38.3 % (37.0-47.0); LYMPH # 1.9 10*3/uL (1.3-4.4); LYMPH % 25.6 % (27.0-41.0); MEAN CORPUSCULAR HGB 23.2 pg (27.0-31.0); MEAN CORPUSCULAR HGB CONC 29.8 g/dl (33.0-37.0); MEAN PLATELET VOLUME 10.5 fl (9.6-12.3); MONO # 0.6 10*3/uL (0.1-1.0); MONO % 8.5 % (3.0-9.0); NEUT # 4.7 10*3/uL (2.3-7.9); NEUT % 62.2 % (47.0-73.0); PLATELET COUNT AUTOMATED 208 10*3/uL (130-400); RED BLOOD COUNT 4.91 10*6/uL (4.10-5.10); RED CELL DISTRI WIDTH 19.4 % (0-14.5); WHITE BLOOD COUNT 7.6 10*3/uL (4.8-10.8)
[2021-10-16 00:29] LABS: ACT PARTIAL THROMBO TIME 31.5 SECONDS (20.0-32.1); INTERNATIONAL NORM RATIO 1.1 (2.0-3.5)
[2021-10-16 00:34] LABS: ALKALINE PHOSPHATASE 174 U/L (45-117); BUN 19 mg/dl (7-24); CHLORIDE 107 mmol/L (98-107); CREATININE 1.08 mg/dL (0.55-1.02); POTASSIUM 3.4 mmol/L (3.5-5.1); SGOT/AST 42 IU/L (3-35); SGPT/ALT 25 U/L (12-78); SODIUM 138 mmol/L (136-145); TOTAL PROTEIN 6.9 gm/dL (6.4-8.2)
[2021-10-16 01:21] VITALS: BP 155/54
== END 2021-10-16 03:29 | disposition home or self-care (01) ==
LOC: ED 00:02
PROVIDERS: Emergency Medicine
DX: R07.9 Chest pain, unspecified (principal); F41.9 Anxiety disorder, unspecified; Z91.040 Latex allergy status; Z88.1 Allergy status to other antibiotic agents; Z79.899 Other long term (current) drug therapy; Z90.49 Acquired absence of other specified parts of digestive tract; Z90.89 Acquired absence of other organs; Z98.890 Other specified postprocedural states

== ENCOUNTER 2021-12-20 21:01 | Emergency (ER) | payer MEDICAID ==
[2021-12-20 21:05] VITALS: BP 133/44
[2021-12-20 21:41] LABS: BASO % 0.4 % (0.0-1.0); EOS # 0.1 10*3/uL (0.0-0.4); EOS % 1.6 % (1.0-4.0); HEMATOCRIT 38.4 % (37.0-47.0); LYMPH # 1.6 10*3/uL (1.3-4.4); LYMPH % 23.6 % (27.0-41.0); MEAN CORPUSCULAR HGB 24.1 pg (27.0-31.0); MEAN CORPUSCULAR HGB CONC 30.5 g/dl (33.0-37.0); MEAN PLATELET VOLUME 10.4 fl (9.6-12.3); MONO # 0.6 10*3/uL (0.1-1.0); NEUT # 4.5 10*3/uL (2.3-7.9); PLATELET COUNT AUTOMATED 225 10*3/uL (130-400); RED BLOOD COUNT 4.86 10*6/uL (4.10-5.10); RED CELL DISTRI WIDTH 17.9 % (0-14.5); WHITE BLOOD COUNT 6.9 10*3/uL (4.8-10.8)
[2021-12-20 21:59] LABS: ACETAMINOPHEN (TYLENOL) < 5.0 ug/ml (10-30); ALKALINE PHOSPHATASE 124 U/L (45-117); BUN 22 mg/dl (7-24); CHLORIDE 105 mmol/L (98-107); CREATININE 1.38 mg/dL (0.55-1.02); ETHYL ALCOHOL < 3.0 mg/dl (<3); POTASSIUM 3.7 mmol/L (3.5-5.1); SGOT/AST 30 IU/L (3-35); SGPT/ALT 28 U/L (12-78); SODIUM 137 mmol/L (136-145); TOTAL PROTEIN 7.4 gm/dL (6.4-8.2)
== END 2021-12-21 09:36 ==
LOC: ED 21:01
PROVIDERS: Emergency Medicine
DX: F43.21 Adjustment disorder with depressed mood (principal)

== ENCOUNTER 2022-01-14 06:33 | Emergency (ER) | payer MEDICAID ==
[2022-01-14 07:36] VITALS: BP 144/56
== END 2022-01-14 16:21 ==
LOC: ED 06:33
DX: S92.311A Displaced fracture of first metatarsal bone, right foot, initial encounter for closed fracture (principal); Z20.822 Contact with and (suspected) exposure to COVID-19; R07.81 Pleurodynia; R07.89 Other chest pain; Z91.048 Other nonmedicinal substance allergy status; Z91.040 Latex allergy status; Z88.1 Allergy status to other antibiotic agents; Z79.899 Other long term (current) drug therapy; Z79.2 Long term (current) use of antibiotics; Z79.4 Long term (current) use of insulin; Z90.49 Acquired absence of other specified parts of digestive tract; Z90.89 Acquired absence of other organs; W06.XXXA Fall from bed, initial encounter; Y93.89 Activity, other specified; Y92.128 Other place in nursing home as the place of occurrence of the external cause; Y99.8 Other external cause status

== ENCOUNTER → 2022-02-07 | Outpatient (CLI) | payer MEDICAID | END | disposition home or self-care (01) | LOC: WOUNDCARE 01:32 | PROVIDERS: ATTEND Nurse Practitioner Family | DX: L89.153 Pressure ulcer of sacral region, stage 3 (principal); E11.22 Type 2 diabetes mellitus with diabetic chronic kidney disease; I12.9 Hypertensive chronic kidney disease with stage 1 through stage 4 chronic kidney disease, or unspecified chronic kidney disease; N18.30 Chronic kidney disease, stage 3 unspecified; E66.01 Morbid (severe) obesity due to excess calories; F41.9 Anxiety disorder, unspecified; F32.9 Major depressive disorder, single episode, unspecified; Z90.710 Acquired absence of both cervix and uterus; Z79.4 Long term (current) use of insulin; Z79.899 Other long term (current) drug therapy; Z79.84 Long term (current) use of oral hypoglycemic drugs; Z68.43 Body mass index [BMI] 50.0-59.9, adult ==

== ENCOUNTER → 2022-02-20 | Outpatient (CLI) | payer MEDICAID | END | disposition home or self-care (01) | LOC: WOUNDCARE 01:05 | PROVIDERS: ATTEND Nurse Practitioner Family | DX: L89.153 Pressure ulcer of sacral region, stage 3 (principal); E66.01 Morbid (severe) obesity due to excess calories; E11.22 Type 2 diabetes mellitus with diabetic chronic kidney disease; I12.9 Hypertensive chronic kidney disease with stage 1 through stage 4 chronic kidney disease, or unspecified chronic kidney disease; N18.30 Chronic kidney disease, stage 3 unspecified; F41.9 Anxiety disorder, unspecified; F32.9 Major depressive disorder, single episode, unspecified; Z90.710 Acquired absence of both cervix and uterus; Z68.43 Body mass index [BMI] 50.0-59.9, adult ==

== ENCOUNTER → 2022-03-06 | Outpatient (CLI) | payer MEDICAID | END | disposition home or self-care (01) | LOC: WOUNDCARE 01:53 | PROVIDERS: ATTEND Nurse Practitioner Family | DX: L89.153 Pressure ulcer of sacral region, stage 3 (principal); E66.01 Morbid (severe) obesity due to excess calories; E11.22 Type 2 diabetes mellitus with diabetic chronic kidney disease; I12.9 Hypertensive chronic kidney disease with stage 1 through stage 4 chronic kidney disease, or unspecified chronic kidney disease; N18.30 Chronic kidney disease, stage 3 unspecified; F32.9 Major depressive disorder, single episode, unspecified; F41.9 Anxiety disorder, unspecified; Z90.710 Acquired absence of both cervix and uterus ==

== ENCOUNTER → 2022-03-20 | Outpatient (CLI) | payer MEDICAID | END | disposition home or self-care (01) | LOC: WOUNDCARE 00:25 | PROVIDERS: ATTEND Nurse Practitioner Family | DX: L89.153 Pressure ulcer of sacral region, stage 3 (principal); E66.01 Morbid (severe) obesity due to excess calories; E11.22 Type 2 diabetes mellitus with diabetic chronic kidney disease; I12.9 Hypertensive chronic kidney disease with stage 1 through stage 4 chronic kidney disease, or unspecified chronic kidney disease; N18.30 Chronic kidney disease, stage 3 unspecified; F41.9 Anxiety disorder, unspecified; F32.9 Major depressive disorder, single episode, unspecified; Z90.710 Acquired absence of both cervix and uterus ==

== ENCOUNTER → 2022-04-10 | Outpatient (CLI) | payer MEDICAID | END | disposition home or self-care (01) | LOC: WOUNDCARE 02:26 | PROVIDERS: ATTEND Nurse Practitioner Family | DX: L89.153 Pressure ulcer of sacral region, stage 3 (principal); E11.22 Type 2 diabetes mellitus with diabetic chronic kidney disease; I12.9 Hypertensive chronic kidney disease with stage 1 through stage 4 chronic kidney disease, or unspecified chronic kidney disease; N18.30 Chronic kidney disease, stage 3 unspecified; E66.01 Morbid (severe) obesity due to excess calories; F32.9 Major depressive disorder, single episode, unspecified; F41.9 Anxiety disorder, unspecified; Z68.43 Body mass index [BMI] 50.0-59.9, adult; Z90.710 Acquired absence of both cervix and uterus ==

== ENCOUNTER → 2022-04-17 | Outpatient (CLI) | payer MEDICAID | END | disposition home or self-care (01) | LOC: WOUNDCARE 04-16 18:08 | PROVIDERS: ATTEND Nurse Practitioner Family | DX: L89.153 Pressure ulcer of sacral region, stage 3 (principal); E11.22 Type 2 diabetes mellitus with diabetic chronic kidney disease; I12.9 Hypertensive chronic kidney disease with stage 1 through stage 4 chronic kidney disease, or unspecified chronic kidney disease; N18.30 Chronic kidney disease, stage 3 unspecified; E66.01 Morbid (severe) obesity due to excess calories; F41.9 Anxiety disorder, unspecified; F32.9 Major depressive disorder, single episode, unspecified; Z90.710 Acquired absence of both cervix and uterus; Z68.43 Body mass index [BMI] 50.0-59.9, adult ==

== ENCOUNTER 2022-04-25 06:17 | Emergency (ER) | payer MEDICAID ==
[2022-04-25 06:46] VITALS: BP 129/94
[2022-04-25 06:54] LABS: BASO # 0.1 10*3/uL (0.0-0.1); BASO % 0.9 % (0.0-1.0); EOS # 0.1 10*3/uL (0.0-0.4); EOS % 2.1 % (1.0-4.0); HEMATOCRIT 43.6 % (37.0-47.0); LYMPH # 1.4 10*3/uL (1.3-4.4); LYMPH % 20.6 % (27.0-41.0); MEAN CELL VOLUME 84.3 fl (81.0-99.0); MEAN CORPUSCULAR HGB 24.8 pg (27.0-31.0); MEAN CORPUSCULAR HGB CONC 29.4 g/dl (33.0-37.0); MEAN PLATELET VOLUME 10.1 fl (9.6-12.3); MONO # 0.7 10*3/uL (0.1-1.0); MONO % 10.3 % (3.0-9.0); NEUT # 4.3 10*3/uL (2.3-7.9); NEUT % 65.8 % (47.0-73.0); PLATELET COUNT AUTOMATED 172 10*3/uL (130-400); RED BLOOD COUNT 5.17 10*6/uL (4.10-5.10); RED CELL DISTRI WIDTH 18.3 % (0-14.5); WHITE BLOOD COUNT 6.6 10*3/uL (4.8-10.8)
[2022-04-25 07:06] LABS: ACT PARTIAL THROMBO TIME 27.4 SECONDS (20.0-32.1)
[2022-04-25 07:17] LABS: CREATININE 1.14 mg/dL (0.55-1.02); TOTAL PROTEIN 7.5 gm/dL (6.4-8.2)
[2022-04-25 07:18] LABS: POTASSIUM 4.7 mmol/L (3.5-5.1)
== END 2022-04-25 09:21 | disposition home or self-care (01) ==
LOC: ED 06:17
PROVIDERS: Emergency Medicine
DX: R07.9 Chest pain, unspecified (principal); Z91.040 Latex allergy status; Z88.1 Allergy status to other antibiotic agents; Z79.899 Other long term (current) drug therapy; Z90.49 Acquired absence of other specified parts of digestive tract; Z90.89 Acquired absence of other organs

== ENCOUNTER → 2022-04-30 | Outpatient (CLI) | payer MEDICAID | END | disposition home or self-care (01) | LOC: WOUNDCARE 00:17 | PROVIDERS: ATTEND Nurse Practitioner Family | DX: L89.153 Pressure ulcer of sacral region, stage 3 (principal); E66.01 Morbid (severe) obesity due to excess calories; E11.22 Type 2 diabetes mellitus with diabetic chronic kidney disease; I12.9 Hypertensive chronic kidney disease with stage 1 through stage 4 chronic kidney disease, or unspecified chronic kidney disease; N18.30 Chronic kidney disease, stage 3 unspecified; F32.9 Major depressive disorder, single episode, unspecified; F41.9 Anxiety disorder, unspecified; Z90.710 Acquired absence of both cervix and uterus; Z68.43 Body mass index [BMI] 50.0-59.9, adult ==

== ENCOUNTER 2022-05-23 12:42 | Emergency (ER) | payer MEDICAID ==
[~2022-05-23] VITALS: Ht 162.5 cm; Wt 1385.3 kg
[2022-05-23 13:15] LABS: BASO % 0.5 % (0.0-1.0); EOS # 0.1 10*3/uL (0.0-0.4); EOS % 1.2 % (1.0-4.0); HEMATOCRIT 42.7 % (37.0-47.0); LYMPH # 1.5 10*3/uL (1.3-4.4); LYMPH % 17.1 % (27.0-41.0); MEAN CELL VOLUME 86.1 fl (81.0-99.0); MEAN CORPUSCULAR HGB 25.4 pg (27.0-31.0); MEAN CORPUSCULAR HGB CONC 29.5 g/dl (33.0-37.0); MEAN PLATELET VOLUME 10.5 fl (9.6-12.3); MONO # 0.4 10*3/uL (0.1-1.0); MONO % 4.5 % (3.0-9.0); NEUT # 6.6 10*3/uL (2.3-7.9); NEUT % 76.2 % (47.0-73.0); PLATELET COUNT AUTOMATED 225 10*3/uL (130-400); RED BLOOD COUNT 4.96 10*6/uL (4.10-5.10); RED CELL DISTRI WIDTH 17.2 % (0-14.5); WHITE BLOOD COUNT 8.7 10*3/uL (4.8-10.8)
[2022-05-23 13:26] LABS: ACT PARTIAL THROMBO TIME 33.2 SECONDS (20.0-32.1); INTERNATIONAL NORM RATIO 1.2 (2.0-3.5)
[2022-05-23 13:33] LABS: CREATININE 1.31 mg/dL (0.55-1.02); POTASSIUM 4.4 mmol/L (3.5-5.1); TOTAL PROTEIN 7.9 gm/dL (6.4-8.2)
[2022-05-23 15:03] VITALS: BP 145/52
== END 2022-05-23 18:29 ==
LOC: ED 12:42
PROVIDERS: Emergency Medicine
DX: R07.9 Chest pain, unspecified (principal); F41.9 Anxiety disorder, unspecified; Z91.040 Latex allergy status; Z88.1 Allergy status to other antibiotic agents; Z79.899 Other long term (current) drug therapy; Z90.49 Acquired absence of other specified parts of digestive tract; Z90.89 Acquired absence of other organs

== ENCOUNTER → 2022-09-25 | Outpatient (CLI) | payer MEDICAID ==
[~2022-09-25] MED LIST changes: +ASPIRIN CHILDRE81 MG PO; +ATORVASTATIN CA40 M1 PO; +VITAMIN D350 MC2 PO; +ZANAFLEX4 M1 PO
== END | disposition home or self-care (01) ==
LOC: MRI 09-24 13:00
PROVIDERS: ATTEND Psychiatry & Neurology Neurology
DX: I48.91 Unspecified atrial fibrillation (principal)

== ENCOUNTER 2022-11-11 15:11 | Emergency (ER) | payer MEDICAID ==
[2022-11-11 15:27] VITALS: BP 138/84
[2022-11-11 15:55] LABS: BASO # 0.1 10*3/uL (0.0-0.1); BASO % 0.7 % (0.0-1.0); EOS # 0.2 10*3/uL (0.0-0.4); HEMATOCRIT 41.5 % (37.0-47.0); LYMPH # 1.5 10*3/uL (1.3-4.4); LYMPH % 19.7 % (27.0-41.0); MEAN CORPUSCULAR HGB 23.4 pg (27.0-31.0); MEAN CORPUSCULAR HGB CONC 29.6 g/dl (33.0-37.0); MEAN PLATELET VOLUME 10.2 fl (9.6-12.3); MONO # 0.6 10*3/uL (0.1-1.0); MONO % 7.8 % (3.0-9.0); NEUT # 5.2 10*3/uL (2.3-7.9); NEUT % 69.4 % (47.0-73.0); PLATELET COUNT AUTOMATED 241 10*3/uL (130-400); RED BLOOD COUNT 5.25 10*6/uL (4.10-5.10); RED CELL DISTRI WIDTH 16.8 % (0-14.5); WHITE BLOOD COUNT 7.5 10*3/uL (4.8-10.8)
[2022-11-11 16:10] LABS: ALKALINE PHOSPHATASE 118 U/L (46-116); BUN 20 mg/dl (9-23); CHLORIDE 98 mmol/L (98-107); POTASSIUM 3.6 mmol/L (3.4-5.1); SGPT/ALT < 7 U/L (10-49); TOTAL PROTEIN 7.2 gm/dL (6.0-8.0)
[2022-11-11 19:28] LABS: BILIRUBIN Negative (Negative); BLOOD 2+ (Negative); CLARITY Cloudy (Clear); COLOR Yellow (Yellow); GLUCOSE Trace (Negative); KETONE Negative (Negative); LEUKO ESTERASE 2+ (Negative); NITRITE Negative (Negative); UROBILINOGEN 0.2 E.U./dl (0.0-1.0)
[2022-11-11 19:36] LABS: BACTERIA 2+; MUCOUS 1+; RBC 16-20 rbc/hpf (0-2); WBC 21-30 wbc/hpf (0-5)
== END 2022-11-11 22:37 ==
LOC: ED 15:11
PROVIDERS: Internal Medicine
DX: F32.9 Major depressive disorder, single episode, unspecified (principal); N39.0 Urinary tract infection, site not specified; D75.89 Other specified diseases of blood and blood-forming organs; E44.0 Moderate protein-calorie malnutrition; I12.9 Hypertensive chronic kidney disease with stage 1 through stage 4 chronic kidney disease, or unspecified chronic kidney disease; N18.32 Chronic kidney disease, stage 3b; R73.9 Hyperglycemia, unspecified; Z91.040 Latex allergy status; Z88.1 Allergy status to other antibiotic agents; Z79.899 Other long term (current) drug therapy; Z90.49 Acquired absence of other specified parts of digestive tract; Z90.89 Acquired absence of other organs

== ENCOUNTER → 2022-12-08 | Day surgery (SDC) | payer MEDICAID ==
[~2022-12-08] VITALS: Ht 238.7 cm; Wt 132.9 kg
[~2022-12-08] MED LIST changes: +METOPROLOL SUCC25 M2 PO
[2022-12-08 10:21] VITALS: BP 153/78
[2022-12-08 11:25] VITALS: BP 176/51
[2022-12-08 11:40] VITALS: BP 118/52
[2022-12-08 11:51] VITALS: BP 131/52
[2022-12-08 12:32] VITALS: BP 135/52
== END | disposition home or self-care (01) ==
LOC: SDC 12-05 11:45
PROVIDERS: ATTEND Surgery
DX: E11.622 Type 2 diabetes mellitus with other skin ulcer (principal); L89.154 Pressure ulcer of sacral region, stage 4; E78.00 Pure hypercholesterolemia, unspecified; F41.9 Anxiety disorder, unspecified; F32.A Depression, unspecified; E11.22 Type 2 diabetes mellitus with diabetic chronic kidney disease; I12.9 Hypertensive chronic kidney disease with stage 1 through stage 4 chronic kidney disease, or unspecified chronic kidney disease; N18.9 Chronic kidney disease, unspecified; Z88.1 Allergy status to other antibiotic agents; Z91.040 Latex allergy status; Z79.899 Other long term (current) drug therapy

== ENCOUNTER → 2023-05-19 | Outpatient (CLI) | payer MEDICAID | END | disposition home or self-care (01) | LOC: CT 02:17 | PROVIDERS: ATTEND Nurse Practitioner Primary Care | DX: I70.8 Atherosclerosis of other arteries (principal); L89.93 Pressure ulcer of unspecified site, stage 3; M47.817 Spondylosis without myelopathy or radiculopathy, lumbosacral region ==

== ENCOUNTER 2023-07-15 18:05 | Emergency (ER) | payer MEDICAID ==
[~2023-07-15 18:05] MED LIST changes: +BUSPIRONE HCL10 MG PO; +CLONAZEPAM0.5 M2 PO; +ERTAPENEM1 GM IV; +SINEMET 25-1001 EACH PO
[2023-07-15 18:49] LABS: BASO # 0.1 10*3/uL (0.0-0.1); BASO % 0.6 % (0.0-1.0); EOS # 0.2 10*3/uL (0.0-0.4); EOS % 2.2 % (1.0-4.0); HEMATOCRIT 37.8 % (37.0-47.0); LYMPH # 1.6 10*3/uL (1.3-4.4); LYMPH % 18.5 % (27.0-41.0); MEAN CELL VOLUME 80.6 fl (81.0-99.0); MEAN CORPUSCULAR HGB 23.5 pg (27.0-31.0); MEAN CORPUSCULAR HGB CONC 29.1 g/dl (33.0-37.0); MEAN PLATELET VOLUME 10.9 fl (9.6-12.3); MONO # 0.6 10*3/uL (0.1-1.0); NEUT # 6.2 10*3/uL (2.3-7.9); NEUT % 71.2 % (47.0-73.0); PLATELET COUNT AUTOMATED 219 10*3/uL (130-400); RED BLOOD COUNT 4.69 10*6/uL (4.10-5.10); RED CELL DISTRI WIDTH 17.3 % (0-14.5); WHITE BLOOD COUNT 8.7 10*3/uL (4.8-10.8)
[2023-07-15 19:06] LABS: ACT PARTIAL THROMBO TIME 33.5 SECONDS (20.0-32.1)
[2023-07-15 19:28] LABS: POTASSIUM 4.2 mmol/L (3.4-5.1); TOTAL PROTEIN 7.3 gm/dL (6.0-8.0)
[2023-07-15 20:30] VITALS: BP 105/58
== END 2023-07-15 21:39 ==
LOC: ED 18:05
PROVIDERS: Emergency Medicine
DX: F41.9 Anxiety disorder, unspecified (principal); I10 Essential (primary) hypertension; E11.9 Type 2 diabetes mellitus without complications; E83.41 Hypermagnesemia; Z91.040 Latex allergy status; Z88.1 Allergy status to other antibiotic agents; Z88.8 Allergy status to other drugs, medicaments and biological substances; Z90.49 Acquired absence of other specified parts of digestive tract; Z90.89 Acquired absence of other organs; Z98.890 Other specified postprocedural states

== ENCOUNTER 2024-06-17 18:41 | Emergency (ER) | payer MEDICAID ==
[~2024-06-17] VITALS: Wt 136.1 kg
[~2024-06-17 18:41] MED LIST changes: +ARIPIPRAZOLE5 MG PO; +BENZTROPINE ME0.5 MG PO; +DAPTOMYCIN350 MG IV; +LEVOFLOXACIN750 M2 PO; +MOUNJARO2.5 MG/0.1 SQ; +OMNICEF300 MG PO; +PROSOURCE275 GM PO; +REXULTI0.5 MG PO; +TYLENOL EXTRA500 MG PO; +VIBRAMYCIN HYC100 MG PO
[2024-06-17 19:01] VITALS: BP 116/52
== END 2024-06-17 20:48 | disposition home or self-care (01) ==
LOC: ED 18:41
DX: Z00.00 Encounter for general adult medical examination without abnormal findings (principal); I10 Essential (primary) hypertension; E11.9 Type 2 diabetes mellitus without complications; E83.41 Hypermagnesemia; Z91.048 Other nonmedicinal substance allergy status; Z91.040 Latex allergy status; Z88.1 Allergy status to other antibiotic agents; Z90.49 Acquired absence of other specified parts of digestive tract; Z90.89 Acquired absence of other organs; Z98.890 Other specified postprocedural states

== ENCOUNTER 2025-02-20 19:17 | Emergency (ER) | payer MEDICAID ==
[~2025-02-20] VITALS: Ht 165.1 cm; Wt 136.1 kg
[2025-02-20 19:23] VITALS: BP 117/46
== END 2025-02-20 23:25 | disposition home or self-care (01) ==
LOC: ED 19:17
DX: S30.0XXA Contusion of lower back and pelvis, initial encounter (principal); F41.9 Anxiety disorder, unspecified; I12.9 Hypertensive chronic kidney disease with stage 1 through stage 4 chronic kidney disease, or unspecified chronic kidney disease; E11.22 Type 2 diabetes mellitus with diabetic chronic kidney disease; N18.30 Chronic kidney disease, stage 3 unspecified; Z90.49 Acquired absence of other specified parts of digestive tract; Z90.89 Acquired absence of other organs; W19.XXXA Unspecified fall, initial encounter; Y93.89 Activity, other specified; Y92.89 Other specified places as the place of occurrence of the external cause; Y99.8 Other external cause status